=== PATIENT | female | born 1955 | race Caucasian/White ===

== ENCOUNTER 2017-01-14 08:16 | Outpatient (CLI) | payer MEDICARE, MEDICAID ==
[~2017-01-14] VITALS: Ht 152.4 cm; Wt 94.3 kg
[2017-01-14] VITALS (13 sets, daily range): BP systolic 108–142; BP diastolic 56–82
[2017-01-14 08:46] LABS: HEMATOCRIT 40.4 % (36.0-47.0); HEMOGLOBIN 13.5 g/dL (12.0-15.5); RED BLOOD COUNT 4.44 x10^6/uL (3.50-5.40); RED CELL DISTRIBUTION WIDTH 12.9 % (11.5-14.5); WHITE BLOOD COUNT 6.4 x10^3/uL (4.0-11.0)
[2017-01-14 09:01] LABS: CALCIUM 9.6 mg/dL (8.5-10.1); CREATININE 0.8 mg/dL (0.6-1.0); GFR 72.7; POTASSIUM 4.3 mmol/L (3.5-5.1)
[2017-01-14] MEDS ORDERED: ASPIRIN 325 MG TABLET ONE (09:04)
[2017-01-14] MEDS ORDERED: ASPIRIN 325 MG TABLET PO ONE (09:15)
[2017-01-14] MEDS ORDERED: IOHEXOL 300 MG/ML 100ML VIAL. ONE (09:23)
[2017-01-14] MEDS ORDERED: LIDOCAINE 2% 20 ML VIAL. ONE (09:23)
[2017-01-14] MEDS ORDERED: fentaNYL PF VIAL 250 MCG/5 ML VIAL ONE (09:32)
[2017-01-14] MEDS ORDERED: HEPARIN for IV BOLUS 10,000 UNIT/10 ML VIAL. ONE (09:32)
[2017-01-14] MEDS ORDERED: NITROGLYCERIN 200 MCG/2 ML SYRINGE FOR CATH/VASC LAB. ONE (09:32)
[2017-01-14] MEDS ORDERED: VERAPAMIL 5 MG/2 ML VIAL. ONE (09:32)
[2017-01-14] MEDS ORDERED: MIDAZOLAM HCL/PF 5 MG/5 ML VIAL. ONE (09:32)
[2017-01-14] MEDS ORDERED: HEPARIN for IV BOLUS 10,000 UNIT/10 ML VIAL. IART ONE (10:00)
[2017-01-14] MEDS ORDERED: VERAPAMIL 5 MG/2 ML VIAL. IART ONE (10:00)
[2017-01-14] MEDS ORDERED: fentaNYL PF VIAL 250 MCG/5 ML VIAL IV ONE (10:00)
[2017-01-14] MEDS ORDERED: MIDAZOLAM HCL/PF 5 MG/5 ML VIAL. IV ONE (10:00)
[2017-01-14] MEDS ORDERED: IOHEXOL 300 MG/ML 100ML VIAL. IART ONE (10:00)
[2017-01-14] MEDS ORDERED: NITROGLYCERIN 200 MCG/2 ML SYRINGE FOR CATH/VASC LAB. IART ONE (10:00)
[2017-01-14] MEDS ORDERED: LIDOCAINE 2% 20 ML VIAL. IJ ONE (10:00)
--- NOTE | 2017-01-14 10:59 | CARD ---
APPROVED REPORT Procedure(s) performed: [facility], Coronary angiography HISTORY The patient is a 61 year-old female with a history of : diabetes mellitus with treatment, hypertensio n, dyslipidemia. INDICATION The indication(s) include : positive stress test, dyspnea. PROCEDURE NARRATIVE The patient was brought electively to the cardiac catheterization lab. A timeout was performed confi rming the patient's name, date of , procedure, and site of procedure. All necessary personnel w ere wearing the appropriate protective equipment and radiation monitor devices. After explaining the risks and benefits of the procedure and alternatives, informed consent was obtained. (See nursing no sandra for medications administered). The right wrist was sterilely prepped and draped in the usual fas hion. The right wrist was infiltrated with 1 mL of 2% lidocaine for subcutaneous anesthesia. A 6 Fr ench Terumo glide sheath was inserted into the right radial artery without difficulty. Right and lef t coronary angiography was performed using a 5Fr TIG 4.0 catheter and a 6Fr JR4. Left ventricular en d diastolic pressure was obtained with a TIG catheter and pullback was performed. All catheter excha nges and advancements were performed over a guidewire. At case completion the right radial sheath wa s removed and a Terumo radial band was applied with 13 ml of air. The patient tolerated the procedur e well and there were no immediate complications. HEMODYNAMICS: LVEDP 18 mm Hg No gradient on LV to aortic pullback. LEFT VENTRICULOGRAM: Deferred due to known EF of 60%. CORONARY ANGIOGRAPHY: LM is a large caliber vessel with normal angiographic appearance. LAD is a large caliber vessel with normal angiographic appearance. Ramus is a large caliber vessel with normal angiographic apeparance. LCx is a moderate caliber non-dominant vessel with normal angiographic appearance. OM1 is a moderate caliber vessel with normal angiographic appearance. RCA is a large caliber dominant vessel with normal angiographic appearance. RPDA and RPL are moderate caliber vessels with normal angiographic appearance. Conclusion 1. Normal angiographic appearance of the coronary arteries. 2. Mildly elevated left ventricular filling pressures. Recommendations Aggressive Medical Therapy
[2017-01-14] MEDS ORDERED: NITROGLYCERIN SUBLINGUAL 0.4 MG BOTTLE OF 25. SL PRN (11:00)
[2017-01-14] MEDS ORDERED: 0.9 % SODIUM CHLORIDE 10 ML DISP.SYRIN. IV PRN (11:00)
[2017-01-14] MEDS ORDERED: INSU100I17 SQ (11:14)
[2017-01-14] MEDS ORDERED: RANI300C PO (11:14)
[2017-01-14] MEDS ORDERED: METO-269 PO (11:14)
[2017-01-14] MEDS ORDERED: HUM100IN3 SQ (11:14)
[2017-01-14] MEDS ORDERED: RIFA550T PO (11:14)
[2017-01-14] MEDS ORDERED: PREG150C PO (11:14)
[2017-01-14] MEDS ORDERED: TIOT18CA IH (11:14)
[2017-01-14] MEDS ORDERED: SULF500T7 PO (11:14)
[2017-01-14] MEDS ORDERED: MELO-156 PO (11:14)
[2017-01-14] MEDS ORDERED: TRAM50TA PO (11:14)
[2017-01-14] MEDS ORDERED: OMEP40CA5 PO (11:14)
[2017-01-14] MEDS ORDERED: FLUT100D IH (11:14)
[2017-01-14] MEDS ORDERED: ACETAMINOPHEN 325 MG TABLET. PO ONE ×3 (13:11→13:15)
== END 2017-01-14 13:15 | disposition home or self-care (01) ==
LOC: CCL 08:16
PROVIDERS: ATTEND Internal Medicine Cardiovascular Disease
DX: R94.39 Abnormal result of other cardiovascular function study (principal); I10 Essential (primary) hypertension; E11.9 Type 2 diabetes mellitus without complications; M19.90 Unspecified osteoarthritis, unspecified site; D86.9 Sarcoidosis, unspecified; Z90.49 Acquired absence of other specified parts of digestive tract; J44.9 Chronic obstructive pulmonary disease, unspecified; Z88.3 Allergy status to other anti-infective agents; Z88.8 Allergy status to other drugs, medicaments and biological substances
CPT/HCPCS: 36415; 80048; 85027; 85610; 93458; C1892; J2250; J3010; J3490; Q9967

== ENCOUNTER → 2019-10-12 | Outpatient (CLI) | payer MEDICARE, MEDICAID ==
[2019-10-06 10:37] VITALS: BP 137/69
[~2019-10-12] MED LIST: DOXA2TAB2 PO; FLUT100D IH; HUM100IN3 SQ; INSU100I17 SQ; MELO7.5T29 PO; METO-269 PO; OMEP40CA45 PO; PREG150C PO; RANI300C PO; RIFA550T4 PO; SULF500T7 PO; TIOT18CA IH; TRAM50TA PO
--- NOTE | 2019-10-13 08:32 | RAD ---
CHEST PA LATERAL History: Dyspnea, pleural effusion Comparison: 10/05/2019 Findings: Frontal and lateral views of the chest were obtained. Heart size normal. Vasculature is congested. Moderate size right pleural effusion is decreased in the interval. No pneumothorax. There is small left pleural effusion is present. Right mid thoracic level with scar atelectasis is present. L1 compression fracture deformity is present with severe vertebral body height loss. This is similar to 09/22/2019 CT chest without contrast. Surgical clips involving the right upper abdomen. IMPRESSION: Right basilar opacification is decreased upon correlation with 09/22/2019 with pleural effusion and atelectasis. Small left pleural effusion is present and also less than prior exam. On the vasculature congestion is mildly improved. Electronically signed by: Jorge Lynch MD (10/13/2019 8:29 AM) [id number]
== END | disposition home or self-care (01) ==
LOC: RAD 15:53
PROVIDERS: ATTEND Internal Medicine Gastroenterology
DX: J90 Pleural effusion, not elsewhere classified (principal); J98.11 Atelectasis; R09.89 Other specified symptoms and signs involving the circulatory and respiratory systems
CPT/HCPCS: 71046

== ENCOUNTER 2019-10-15 19:04 | Inpatient (IN) | payer MEDICARE, MEDICAID ==
[~2019-10-15] VITALS: Ht 144.8 cm; Wt 90.1 kg
[2019-10-15 19:42] LABS: BASO % 1 % (0-3); EOS # 0.1 x10^3/uL (0.0-0.7); EOS % 1 % (0-3); HEMATOCRIT 38.2 % (36.0-47.0); HEMOGLOBIN 12.2 g/dL (12.0-15.5); LYMPH # 0.7 x10^3/uL (1.0-4.8); LYMPH % 15 % (24-48); MEAN CORPUSCULAR HEMOGLOBIN 28 pg (25-35); MEAN CORPUSCULAR HGB CONC 32 g/dL (31-37); MEAN CORPUSCULAR VOLUME 89 fL (79-100); MONO # 0.4 x10^3/uL (0.0-1.1); MONO % 9 % (0-9); NEUT # 3.7 x10^3/uL (1.8-7.7); NEUT % 75 % (31-73); PLATELET COUNT 118 x10^3/uL (140-400); RED BLOOD COUNT 4.28 x10^6/uL (3.50-5.40); RED CELL DISTRIBUTION WIDTH 14.5 % (11.5-14.5)
[2019-10-15 19:51] LABS: CALCIUM 8.7 mg/dL (8.5-10.1); CREATININE 0.5 mg/dL (0.6-1.0); GFR 123.8; POTASSIUM 4.3 mmol/L (3.5-5.1)
--- NOTE | 2019-10-15 19:52 | PHYS DOC ---
Past Medical History Smoking Status: Never Smoker Adult General Chief Complaint Chief Complaint: ABNORMAL LABS HPI HPI Patient is a 64 year old female past medical history of diabetes, hypertension, liver cirrhosis, CHF presents with the chief complaint of shortness of breath. Prior to arrival patient was seen by here PCP (Dr Correa) who ordered outpatient labs and xray at [facility]. Labs and Xray reviewed by PCP and referred patient to [facility] for admission to [facility]. Patient states she has had shortness of breath for years but worse over the last few days. She denies any associated chest pain. Review of Systems Review of Systems Constitutional: Denies fever or chills [] Eyes: Denies change in visual acuity, redness, or eye pain [] HENT: Denies nasal congestion or sore throat [] Respiratory: positive shortness of breath [] Cardiovascular: No additional information not addressed in HPI [] GI: Denies abdominal pain, nausea, vomiting, bloody stools or diarrhea [] : Denies dysuria or hematuria [] Musculoskeletal: Denies back pain or joint pain [] Integument: Denies rash or skin lesions [] Neurologic: Denies headache, focal weakness or sensory changes [] Endocrine: Denies polyuria or polydipsia [] All other systems were reviewed and found to be within normal limits, except as documented in this note. Allergies Allergies Allergies Coded Allergies Type Severity Reaction Last Updated Verified Tetanus Vaccines and Toxoid Allergy Intermediate 01/14/17 Yes clotrimazole Allergy Intermediate 01/14/17 Yes lisinopril Allergy Intermediate 01/14/17 Yes losartan Allergy Intermediate 01/14/17 Yes Physical Exam Physical Exam Constitutional: Well developed, well nourished, no acute distress, non-toxic appearance. [] HENT: Normocephalic, atraumatic, bilateral external ears normal, oropharynx moist, no oral exudates, nose normal. [] Eyes: PERRLA, EOMI, conjunctiva normal, no discharge. [] Neck: Normal range of motion, no tenderness, supple, no stridor. [] Cardiovascular:Heart rate regular rhythm, no murmur [] Lungs & Thorax: decreased breath sounds on right Abdomen: Bowel sounds normal, soft, no tenderness, no masses, no pulsatile masses. [] Skin: Warm, dry, no erythema, no rash. [] Back: No tenderness, no CVA tenderness. [] Extremities: No tenderness, no cyanosis, no clubbing, ROM intact, no edema. [] Neurologic: Alert and oriented X 3, normal motor function, normal sensory function, no focal deficits noted. [] Psychologic: Affect normal, judgement normal, mood normal. [] Current Patient Data Lab Values Laboratory Tests Test 10/15/19 19:28 White Blood Count 5.0 x10^3/uL (4.0-11.0) Red Blood Count 4.28 x10^6/uL (3.50-5.40) Hemoglobin 12.2 g/dL (12.0-15.5) Hematocrit 38.2 % (36.0-47.0) Mean Corpuscular Volume 89 fL (79-100) Mean Corpuscular Hemoglobin 28 pg (25-35) Mean Corpuscular Hemoglobin Concent 32 g/dL (31-37) Red Cell Distribution Width 14.5 % (11.5-14.5) Platelet Count 118 x10^3/uL (140-400) L Neutrophils (%) (Auto) 75 % (31-73) H Lymphocytes (%) (Auto) 15 % (24-48) L Monocytes (%) (Auto) 9 % (0-9) Eosinophils (%) (Auto) 1 % (0-3) Basophils (%) (Auto) 1 % (0-3) Neutrophils # (Auto) 3.7 x10^3/uL (1.8-7.7) Lymphocytes # (Auto) 0.7 x10^3/uL (1.0-4.8) L Monocytes # (Auto) 0.4 x10^3/uL (0.0-1.1) Eosinophils # (Auto) 0.1 x10^3/uL (0.0-0.7) Basophils # (Auto) 0.0 x10^3/uL (0.0-0.2) Sodium Level 145 mmol/L (136-145) Potassium Level 4.3 mmol/L (3.5-5.1) Chloride Level 103 mmol/L (98-107) Carbon Dioxide Level 41 mmol/L (21-32) H Anion Gap 1 (6-14) L Blood Urea Nitrogen 7 mg/dL (7-20) Creatinine 0.5 mg/dL (0.6-1.0) L Estimated GFR (Cockcroft-Gault) 123.8 BUN/Creatinine Ratio 14 (6-20) Glucose Level 98 mg/dL (70-99) Calcium Level 8.7 mg/dL (8.5-10.1) Total Bilirubin 0.2 mg/dL (0.2-1.0) Aspartate Amino Transferase (AST) 40 U/L (15-37) H Alanine Aminotransferase (ALT) 37 U/L (14-59) Alkaline Phosphatase 173 U/L (46-116) H Ammonia 17 mcmol/L (11-34) Troponin I Quantitative < 0.017 ng/mL (0.000-0.055) RV-Jbh-A-Type Natriuretic Peptide 311 pg/mL (0-124) H Total Protein 7.7 g/dL (6.4-8.2) Albumin 3.2 g/dL (3.4-5.0) L Albumin/Globulin Ratio 0.7 (1.0-1.7) L Laboratory Tests 10/15/19 19:28 Laboratory Tests 10/15/19 19:28 EKG EKG [] Radiology/Procedures Radiology/Procedures [] Impressions: Chest Xray [facility] Pleural Effusion Right Course & Med Decision Making Course & Med Decision Making Pertinent Labs and Imaging studies reviewed. (See chart for details) [] Dragon Disclaimer Dragon Disclaimer This electronic medical record was generated, in whole or in part, using a voice recognition dictation system. Departure Departure Impression: Primary Impression: Dyspnea Additional Impression: Pleural effusion associated with hepatic disorder Disposition: ADMITTED INPATIENT Admitting Physician: ERNESTO (Dr Pisano) Condition: STABLE Referrals: ANGEL CASTANEDA MD (PCP) Problem Qualifiers MARIA LUISA VÁSQUEZ DO Oct 15, 2019 19:52
[2019-10-15 19:58] LABS: ALBUMIN 3.2 g/dL (3.4-5.0); ALBUMIN/GLOBULIN RATIO 0.7 (1.0-1.7); TOTAL BILIRUBIN 0.2 mg/dL (0.2-1.0); TOTAL PROTEIN 7.7 g/dL (6.4-8.2)
[2019-10-15 21:09] LABS: BASE EXCESS ABG 10 mmol/L (-3-3); HCO3 ABG 39 mmol/L (21-28); PO2 ABG 90 mmHg (65-108); SAT O2 ABG 96 % (92-99)
[2019-10-15 22:04] LABS: PCO2 ABG 81 mmHg (35-46)
[2019-10-15 22:07] LABS: BILIRUBIN,URINE NEGATIVE (NEG); COLOR,URINE YELLOW; NITRITE,URINE NEGATIVE (NEG); PROTEIN,URINE NEGATIVE (NEG-TRACE); UROBILINOGEN,URINE 0.2 mg/dL (0.2 mg/dL)
[2019-10-15 22:12] LABS: CLARITY,URINE CLEAR
[2019-10-15 22:14] LABS: BACTERIA,URINE FEW /HPF (0-FEW); RBC,URINE RARE /HPF (0-2); SQUAMOUS EPITHELIAL CELL,UR FEW /LPF
[2019-10-16] VITALS (7 sets, daily range): BP systolic 136–204; BP diastolic 64–91
--- NOTE | 2019-10-16 11:11 | PDOC1 ---
History and Physical Date of Admission: Date of Admission DATE: 10/16/19 TIME: 11:08 Chief Complaint: Problems: (1) Acute and chronic respiratory failure with hypoxia (2) Acute and chronic respiratory failure with hypercapnia (3) Hepatic encephalopathy (4) Pleural effusion associated with hepatic disorder (5) Dyspnea (6) Pleural effusion on right Chief Complain: Shortness of breath History of Present Illness: HPI: This is an elderly female who went to her primary care doctor yesterday complaining of shortness of breath Dr. Lino ordered a chest x-ray and some labs The chest x-ray showed a pleural effusion She was told to come to our facility for admission She's now been examined on the telemetry floor where she is here with her Patient rates her symptoms at 9 out of 10 She has associated weakness This is been occurring for several days Increased her home meds did not help Moving makes it worse sitting still makes it better Described as very irritating Patient is now made were going to be consulting pulmonary medicine Past Medical/Surgical History: PMH/PSH: diabetes, hypertension, liver cirrhosis, CHF Allergies: Allergies: Coded Allergies: Tetanus Vaccines and Toxoid (Verified Allergy, Intermediate, 01/14/17) clotrimazole (Verified Allergy, Intermediate, 01/14/17) lisinopril (Verified Allergy, Intermediate, 01/14/17) losartan (Verified Allergy, Intermediate, 01/14/17) Family History: Family History: Hypertension Social History: Social Hisoty: She does not drink smoke or take drugs she is and retired Current Medications: Current Medications Active Scripts Active Reported Doxazosin Mesylate 2 Mg Tablet 1 Tab PO DAILY Meloxicam 7.5 Mg Tablet 1 Tab PO DAILY Omeprazole 40 Mg Capsule.dr 1 Cap PO DAILY Spiriva (Tiotropium Dixon) 18 Mcg Cap.w.dev 1 Cap IH DAILY Flovent 100MCG Diskus (Fluticasone Propionate) 100 Mcg Disk.w.dev 1 Puff IH BID Novolog Flexpen (Insulin Aspart) 100 Unit/1 Ml Insuln.pen 1 Unit SQ sliding scale for bg >200 Humulin 70/30 Kwikpen (Hum Insulin Nph/Reg Insulin Hm) 100 Unit/1 Ml Insuln.pen 100 Unit SQ 35 units in the am, 33 units at hs Toprol Xl (Metoprolol Succinate) 50 Mg Tab.er.24h 1 Tab PO DAILY Lyrica (Pregabalin) 150 Mg Capsule 1 Cap PO BID Sulfasalazine 500 Mg Tablet 1,000 Mg PO BID Xifaxan (Rifaximin) 550 Mg Tablet 1 Tab PO BID ROS: Review of Systems Review of System REVIEW OF SYSTEMS: GENERAL: complains of weakness SKIN: No bruising, hair changes or rashes. EYES: No blurred, double or loss of vision. NOSE AND THROAT: No history of nosebleeds, hoarseness or sore throat. HEART: No history of palpitations, chest pain or shortness of breath on exertion. LUNGS: Complains of shortness of breath GASTROINTESTINAL: Denies changes in appetite, nausea, vomiting, diarrhea or constipation. GENITOURINARY: No history of frequency, urgency, hesitancy or nocturia. NEUROLOGIC: Denies history of numbness, tingling, or tremor. PSYCHIATRIC: No history of panic, anxiety or depression. ENDOCRINE: No history of heat or cold intolerance, polyuria or polydipsia. EXTREMITIES: Denies joint pain, pain on walking or stiffness. Physical Exam: Vital Signs: Vital Signs Date Time Temp Pulse Resp B/P (MAP) Pulse Ox O2 Delivery O2 Flow Rate FiO2 10/16/19 07:00 98.3 79 22 153/72 (99) 97 Nasal Cannula 2.0 98.3 Physcial Exam: GEN: No apparent distress. Alert and oriented HEENT: Normal cephalic, atraumatic, external auditory canals are patent EYES: Extraocular muscles are intact, pupil are equally round and reactive to light and accommodation MUSCULOSKELETAL: Well developed , well nourished, good range of motion ENDOCRINE: No thyromegaly was palpated LYMPHATICS: No cervical chain or axillary nodes were noted HEMATOPOIETIC: No bruising NECK: Supple, no JVD, no thyromegaly was noted LUNGS: Decreased breath sounds on the right HEART: RRR, S!, S2 present. Peripheral pulses intact, no obvious murmurs noted ABDOMEN: Soft, nontender. Positive bowel sounds, no organomegaly, normal bowel sounds EXTREMITIES: Without clubbing, cyanosis, or edema. Pedal pulses intact. Negative Homans sign NEUROLOGIC: Normal speech and tone. A&O x 3, moves all extremities, no obvious focal deficits PSYCHIATRIC: Normal affect, normal mood. Stable SKIN: No ulcerations or rashes, good skin turgor, no jaundice VASCULAR: Good capillary refill, neurovascular bundle appears to be intact Labs: Labs: Laboratory Tests Test 10/15/19 19:28 10/15/19 21:05 10/15/19 22:00 10/16/19 08:13 White Blood Count 5.0 x10^3/uL (4.0-11.0) Red Blood Count 4.28 x10^6/uL (3.50-5.40) Hemoglobin 12.2 g/dL (12.0-15.5) Hematocrit 38.2 % (36.0-47.0) Mean Corpuscular Volume 89 fL (79-100) Mean Corpuscular Hemoglobin 28 pg (25-35) Mean Corpuscular Hemoglobin Concent 32 g/dL (31-37) Red Cell Distribution Width 14.5 % (11.5-14.5) Platelet Count 118 x10^3/uL (140-400) Neutrophils (%) (Auto) 75 % (31-73) Lymphocytes (%) (Auto) 15 % (24-48) Monocytes (%) (Auto) 9 % (0-9) Eosinophils (%) (Auto) 1 % (0-3) Basophils (%) (Auto) 1 % (0-3) Neutrophils # (Auto) 3.7 x10^3/uL (1.8-7.7) Lymphocytes # (Auto) 0.7 x10^3/uL (1.0-4.8) Monocytes # (Auto) 0.4 x10^3/uL (0.0-1.1) Eosinophils # (Auto) 0.1 x10^3/uL (0.0-0.7) Basophils # (Auto) 0.0 x10^3/uL (0.0-0.2) Sodium Level 145 mmol/L (136-145) Potassium Level 4.3 mmol/L (3.5-5.1) Chloride Level 103 mmol/L (98-107) Carbon Dioxide Level 41 mmol/L (21-32) Anion Gap 1 (6-14) Blood Urea Nitrogen 7 mg/dL (7-20) Creatinine 0.5 mg/dL (0.6-1.0) Estimated GFR (Cockcroft-Gault) 123.8 BUN/Creatinine Ratio 14 (6-20) Glucose Level 98 mg/dL (70-99) Calcium Level 8.7 mg/dL (8.5-10.1) Total Bilirubin 0.2 mg/dL (0.2-1.0) Aspartate Amino Transf (AST/SGOT) 40 U/L (15-37) Alanine Aminotransferase (ALT/SGPT) 37 U/L (14-59) Alkaline Phosphatase 173 U/L (46-116) Ammonia 17 mcmol/L (11-34) Troponin I Quantitative < 0.017 ng/mL (0.000-0.055) CV-Nab-X-Type Natriuretic Peptide 311 pg/mL (0-124) Total Protein 7.7 g/dL (6.4-8.2) Albumin 3.2 g/dL (3.4-5.0) Albumin/Globulin Ratio 0.7 (1.0-1.7) O2 Saturation 96 % (92-99) Arterial Blood pH 7.31 (7.35-7.45) Arterial Blood pCO2 at Patient Temp 81 mmHg (35-46) Arterial Blood pO2 at Patient Temp 90 mmHg (65-108) Arterial Blood HCO3 39 mmol/L (21-28) Arterial Blood Base Excess 10 mmol/L (-3-3) Urine Collection Type Void Urine Color Yellow Urine Clarity Clear Urine pH 7.0 Urine Specific Kimberly 1.020 Urine Protein Negative mg/dL (NEG-TRACE) Urine Glucose (UA) Negative mg/dL (NEG) Urine Ketones (Stick) Negative mg/dL (NEG) Urine Blood Negative (NEG) Urine Nitrite Negative (NEG) Urine Bilirubin Negative (NEG) Urine Urobilinogen Dipstick 0.2 mg/dL (0.2 mg/dL) Urine Leukocyte Esterase Small (NEG) Urine RBC Rare /HPF (0-2) Urine WBC 1-4 /HPF (0-4) Urine Squamous Epithelial Cells Few /LPF Urine Bacteria Few /HPF (0-FEW) Urine Mucus Slight /LPF Glucose (Fingerstick) 111 mg/dL (70-99) Laboratory Tests Test 10/15/19 19:28 10/15/19 21:05 10/15/19 22:00 10/16/19 08:13 White Blood Count 5.0 x10^3/uL (4.0-11.0) Red Blood Count 4.28 x10^6/uL (3.50-5.40) Hemoglobin 12.2 g/dL (12.0-15.5) Hematocrit 38.2 % (36.0-47.0) Mean Corpuscular Volume 89 fL (79-100) Mean Corpuscular Hemoglobin 28 pg (25-35) Mean Corpuscular Hemoglobin Concent 32 g/dL (31-37) Red Cell Distribution Width 14.5 % (11.5-14.5) Platelet Count 118 x10^3/uL (140-400) Neutrophils (%) (Auto) 75 % (31-73) Lymphocytes (%) (Auto) 15 % (24-48) Monocytes (%) (Auto) 9 % (0-9) Eosinophils (%) (Auto) 1 % (0-3) Basophils (%) (Auto) 1 % (0-3) Neutrophils # (Auto) 3.7 x10^3/uL (1.8-7.7) Lymphocytes # (Auto) 0.7 x10^3/uL (1.0-4.8) Monocytes # (Auto) 0.4 x10^3/uL (0.0-1.1) Eosinophils # (Auto) 0.1 x10^3/uL (0.0-0.7) Basophils # (Auto) 0.0 x10^3/uL (0.0-0.2) Sodium Level 145 mmol/L (136-145) Potassium Level 4.3 mmol/L (3.5-5.1) Chloride Level 103 mmol/L (98-107) Carbon Dioxide Level 41 mmol/L (21-32) Anion Gap 1 (6-14) Blood Urea Nitrogen 7 mg/dL (7-20) Creatinine 0.5 mg/dL (0.6-1.0) Estimated GFR (Cockcroft-Gault) 123.8 BUN/Creatinine Ratio 14 (6-20) Glucose Level 98 mg/dL (70-99) Calcium Level 8.7 mg/dL (8.5-10.1) Total Bilirubin 0.2 mg/dL (0.2-1.0) Aspartate Amino Transf (AST/SGOT) 40 U/L (15-37) Alanine Aminotransferase (ALT/SGPT) 37 U/L (14-59) Alkaline Phosphatase 173 U/L (46-116) Ammonia 17 mcmol/L (11-34) Troponin I Quantitative < 0.017 ng/mL (0.000-0.055) CU-Jir-C-Type Natriuretic Peptide 311 pg/mL (0-124) Total Protein 7.7 g/dL (6.4-8.2) Albumin 3.2 g/dL (3.4-5.0) Albumin/Globulin Ratio 0.7 (1.0-1.7) O2 Saturation 96 % (92-99) Arterial Blood pH 7.31 (7.35-7.45) Arterial Blood pCO2 at Patient Temp 81 mmHg (35-46) Arterial Blood pO2 at Patient Temp 90 mmHg (65-108) Arterial Blood HCO3 39 mmol/L (21-28) Arterial Blood Base Excess 10 mmol/L (-3-3) Urine Collection Type Void Urine Color Yellow Urine Clarity Clear Urine pH 7.0 Urine Specific Kimberly 1.020 Urine Protein Negative mg/dL (NEG-TRACE) Urine Glucose (UA) Negative mg/dL (NEG) Urine Ketones (Stick) Negative mg/dL (NEG) Urine Blood Negative (NEG) Urine Nitrite Negative (NEG) Urine Bilirubin Negative (NEG) Urine Urobilinogen Dipstick 0.2 mg/dL (0.2 mg/dL) Urine Leukocyte Esterase Small (NEG) Urine RBC Rare /HPF (0-2) Urine WBC 1-4 /HPF (0-4) Urine Squamous Epithelial Cells Few /LPF Urine Bacteria Few /HPF (0-FEW) Urine Mucus Slight /LPF Glucose (Fingerstick) 111 mg/dL (70-99) Images: Images Chest x-ray results are pending as they were done at another facility but apparently did show a pleural effusion Assessment/Plan Assessment/Plan Pleural effusion Acute on chronic systolic and diastolic heart failure Plan Consult cardiology Consult pulmonary IV Lasix if consultants agree She might need to interventional radiology to do a thoracentesis but will await pulmonary input Home meds DVT prophylaxis Full code Trend labs PT OT if possible She may need residential after this hospitalization ELODIA GABRIEL III DO Oct 16, 2019 11:11
--- NOTE | 2019-10-16 11:47 | NUR ---
SS following for discharge planning. SS reviewed pt chart. Pt is from home with spouse and is currently requiring oxygen. SS will continue to follow for discharge planning.
--- NOTE | 2019-10-16 12:54 | PDOC2 ---
SONI ZUNIGA PLASTIC DESIGN APPLIER 10/16/19 1254: CARDIAC CONSULT DATE OF CONSULT Date of Consult DATE: 10/16/19 TIME: 12:39 REASON FOR CONSULT Reason for Consult: CHF REFERRING PHYSICIAN Referring Physician: Liban SOURCE Source: Chart review, Patient HISTORY OF PRESENT ILLNESS HISTORY OF PRESENT ILLNESS This is a 64 yo female admitted for complains of SOA. She was at her PCP's office and CXR done and noted with pleural effusion. She was then told to come to ED. Reports that she has been having more SOA recently. She does have LE edema but could not tell me if this is worse or the same. She is complaint with her medications and CPAP device which was just adjusted a week ago. She does not take her BP and upon admission her BP was significantly high. She is not in any pain. No chest pain or palpitations. She drinks about 2-3L per day. No frequnet dizziness, falls or any passsing out episode. PAST MEDICAL HISTORY Cardiovascular: CHF, HTN Pulmonary: Other (sarcoidosis; pleural effusion; CAROLE with CPAP) Hepatobiliary: Cirrhosis Musculoskeletal: Osteoarthritis Rheumatologic: Rheumatoid arthritis Renal/: Urinary Incontinence Endocrine: Diabetes PAST SURGICAL HISTORY Past Surgical History: Tonsillectomy, Other (LHC; achiles tendon repair; thoracentesis) FAMILY HISTORY Family History noncontributory SOCIAL HISTORY Smoke: No ALCOHOL: none Drugs: None Lives: with Family ALLERGIES ALLERGIES: Coded Allergies: Tetanus Vaccines and Toxoid (Verified Allergy, Intermediate, 01/14/17) clotrimazole (Verified Allergy, Intermediate, 01/14/17) lisinopril (Verified Allergy, Intermediate, 01/14/17) losartan (Verified Allergy, Intermediate, 01/14/17) ROS Review of System 14 point ROS evaluated with pertinent positives noted per HPI PHYSICAL EXAM General: Alert, Oriented X3, Cooperative, No acute distress HEENT: Atraumatic, Mucous membr. moist/pink, Other ([place] ) Lungs: Other (dminsihed, basliar crackles) Heart: Regular rate (SR), Other (distant heart sounds) Extremities: No cyanosis, Other (2+ bilateral LE pitting edema) Skin: No breakdown Neuro: Normal speech, Sensation intact Psych/Mental Status: Mental status NL, Mood NL MUSCULOSKELETAL: Osteoarthritic changes both hands VITALS/I&O VITALS/I&O: Vital Signs Date Time Temp Pulse Resp B/P (MAP) Pulse Ox O2 Delivery O2 Flow Rate FiO2 10/16/19 07:00 98.3 79 22 153/72 (99) 97 Nasal Cannula 2.0 98.3 I & O 10/15/19 10/15/19 10/16/19 15:00 23:00 07:00 Output Total 150 ml Balance -150 ml LABS Lab: Laboratory Tests Test 10/15/19 19:28 10/15/19 21:05 10/15/19 22:00 10/16/19 08:13 White Blood Count 5.0 x10^3/uL (4.0-11.0) Red Blood Count 4.28 x10^6/uL (3.50-5.40) Hemoglobin 12.2 g/dL (12.0-15.5) Hematocrit 38.2 % (36.0-47.0) Mean Corpuscular Volume 89 fL (79-100) Mean Corpuscular Hemoglobin 28 pg (25-35) Mean Corpuscular Hemoglobin Concent 32 g/dL (31-37) Red Cell Distribution Width 14.5 % (11.5-14.5) Platelet Count 118 x10^3/uL (140-400) L Neutrophils (%) (Auto) 75 % (31-73) H Lymphocytes (%) (Auto) 15 % (24-48) L Monocytes (%) (Auto) 9 % (0-9) Eosinophils (%) (Auto) 1 % (0-3) Basophils (%) (Auto) 1 % (0-3) Neutrophils # (Auto) 3.7 x10^3/uL (1.8-7.7) Lymphocytes # (Auto) 0.7 x10^3/uL (1.0-4.8) L Monocytes # (Auto) 0.4 x10^3/uL (0.0-1.1) Eosinophils # (Auto) 0.1 x10^3/uL (0.0-0.7) Basophils # (Auto) 0.0 x10^3/uL (0.0-0.2) Sodium Level 145 mmol/L (136-145) Potassium Level 4.3 mmol/L (3.5-5.1) Chloride Level 103 mmol/L (98-107) Carbon Dioxide Level 41 mmol/L (21-32) H Anion Gap 1 (6-14) L Blood Urea Nitrogen 7 mg/dL (7-20) Creatinine 0.5 mg/dL (0.6-1.0) L Estimated GFR (Cockcroft-Gault) 123.8 BUN/Creatinine Ratio 14 (6-20) Glucose Level 98 mg/dL (70-99) Calcium Level 8.7 mg/dL (8.5-10.1) Total Bilirubin 0.2 mg/dL (0.2-1.0) Aspartate Amino Transferase (AST) 40 U/L (15-37) H Alanine Aminotransferase (ALT) 37 U/L (14-59) Alkaline Phosphatase 173 U/L (46-116) H Ammonia 17 mcmol/L (11-34) Troponin I Quantitative < 0.017 ng/mL (0.000-0.055) RJ-Sbk-Q-Type Natriuretic Peptide 311 pg/mL (0-124) H Total Protein 7.7 g/dL (6.4-8.2) Albumin 3.2 g/dL (3.4-5.0) L Albumin/Globulin Ratio 0.7 (1.0-1.7) L O2 Saturation 96 % (92-99) Arterial Blood pH 7.31 (7.35-7.45) L Arterial Blood pCO2 at Patient Temp 81 mmHg (35-46) *H Arterial Blood pO2 at Patient Temp 90 mmHg (65-108) Arterial Blood HCO3 39 mmol/L (21-28) H Arterial Blood Base Excess 10 mmol/L (-3-3) H Urine Collection Type Void Urine Color Yellow Urine Clarity Clear Urine pH 7.0 Urine Specific [place] 1.020 Urine Protein Negative mg/dL (NEG-TRACE) Urine Glucose (UA) Negative mg/dL (NEG) Urine Ketones (Stick) Negative mg/dL (NEG) Urine Blood Negative (NEG) Urine Nitrite Negative (NEG) Urine Bilirubin Negative (NEG) Urine Urobilinogen Dipstick 0.2 mg/dL (0.2 mg/dL) Urine Leukocyte Esterase Small (NEG) Urine RBC Rare /HPF (0-2) Urine WBC 1-4 /HPF (0-4) Urine Squamous Epithelial Cells Few /LPF Urine Bacteria Few /HPF (0-FEW) Urine Mucus Slight /LPF Glucose (Fingerstick) 111 mg/dL (70-99) H Test 10/16/19 12:08 Glucose (Fingerstick) 281 mg/dL (70-99) H Laboratory Tests 10/15/19 19:28 Laboratory Tests 10/15/19 19:28 ECHOCARDIOGRAM ECHOCARDIOGRAM <Conclusion> The left ventricular systolic function is grossly normal and the ejection fraction is within normal range. The Ejection Fraction is 60%. Unable to accurately determine wall motion due to severely limited images. Probable mild mitral stenosis. DATE: 09/22/19 1707 HEART CATH HEART CATH HEMODYNAMICS: LVEDP 18 mm Hg No gradient on LV to aortic pullback. LEFT VENTRICULOGRAM: Deferred due to known EF of 60%. CORONARY ANGIOGRAPHY: LM is a large caliber vessel with normal angiographic appearance. LAD is a large caliber vessel with normal angiographic appearance. Ramus is a large caliber vessel with normal angiographic apeparance. LCx is a moderate caliber non-dominant vessel with normal angiographic appearance. OM1 is a moderate caliber vessel with normal angiographic appearance. RCA is a large caliber dominant vessel with normal angiographic appearance. RPDA and RPL are moderate caliber vessels with normal angiographic appearance. Conclusion 1. Normal angiographic appearance of the coronary arteries. 2. Mildly elevated left ventricular filling pressures. Recommendations Aggressive Medical Therapy DATE: 01/14/17 1059 ASSESSMENT/PLAN ASSESSMENT/PLAN 1. Acute on chronic respiratory failure with underlying sarcoidosis, cirrhosis, CAROLE and CHF 2. Acute on chronic diastolic CHF: multifactorial with periods of high BP contributing 3. HTN urgency: improved 4. DM2 5. Hx of RA Recommendations 1. Lasix therapy. 2. Pulmonary consult 3. Bipap at Hs. O2 to titrate 4. Discussed HBPM. Restart DARIEN Keith MD 10/16/19 1641: CARDIAC CONSULT ASSESSMENT/PLAN ASSESSMENT/PLAN Pt. seen and examined. Agree with above [employer]ESS OPERATOR note. attempted to call PCP but unable to reach her. Her CXR is unchanged from last week. Continue diuresis as tolerated. Supportive care. May need repeat thoracentesis, defer to Dr. Pink. Thanks SONI ZUNIGA APRN Oct 16, 2019 12:54 DARIEN BAILEY MD Oct 16, 2019 16:41
[2019-10-16] MEDS: INSULIN NPH/REG INSULIN 70/30 300 UNITS/3 ML INSULN.PEN. SQ SCH (12:57)
[2019-10-16] MEDS ORDERED: FUROSEMIDE 40 MG/4 ML VIAL. IVP ONE (13:30)
[2019-10-16 13:42] LABS: CALCIUM 8.6 mg/dL (8.5-10.1); CREATININE 0.7 mg/dL (0.6-1.0); POTASSIUM 4.4 mmol/L (3.5-5.1)
[2019-10-16] MEDS: MELOXICAM 7.5 MG TABLET PO SCH (13:54)
[2019-10-16] MEDS: METOPROLOL SUCC 24HR ER 50 MG TAB.ER.24H. PO SCH (13:55)
[2019-10-16] MEDS: PREGABALIN 75 MG CAPSULE PO SCH ×2 (13:56→21:50)
[2019-10-16] MEDS: PANTOPRAZOLE 40 MG TABLET.DR. PO SCH (13:56)
[2019-10-16] MEDS: sulfaSALAzine 500 MG TABLET PO SCH ×2 (14:14→21:53)
[2019-10-16] MEDS: rifAXIMin 550 MG TABLET PO SCH ×2 (14:15→21:51)
[2019-10-16] MEDS: IPRATRPIUM/ALBUTEROL 0.5/2.5MG 3 ML NEBU. NEB SCH ×2 (15:01→20:22)
--- NOTE | 2019-10-16 15:08 | PDOC ---
PULMONARY PROGRESS NOTES Vitals Vital Signs Date Time Temp Pulse Resp B/P (MAP) Pulse Ox O2 Delivery O2 Flow Rate FiO2 10/16/19 13:55 81 141/70 10/16/19 11:00 98.1 20 96 Nasal Cannula 2.0 98.1 General: Alert Lungs: Clear, Other Cardiovascular: S1, S2 Abdomen: Soft, Non-tender Extremities: No Edema Labs Laboratory Tests Test 10/15/19 19:28 10/15/19 21:05 10/15/19 22:00 10/16/19 08:13 White Blood Count 5.0 x10^3/uL (4.0-11.0) Red Blood Count 4.28 x10^6/uL (3.50-5.40) Hemoglobin 12.2 g/dL (12.0-15.5) Hematocrit 38.2 % (36.0-47.0) Mean Corpuscular Volume 89 fL (79-100) Mean Corpuscular Hemoglobin 28 pg (25-35) Mean Corpuscular Hemoglobin Concent 32 g/dL (31-37) Red Cell Distribution Width 14.5 % (11.5-14.5) Platelet Count 118 x10^3/uL (140-400) Neutrophils (%) (Auto) 75 % (31-73) Lymphocytes (%) (Auto) 15 % (24-48) Monocytes (%) (Auto) 9 % (0-9) Eosinophils (%) (Auto) 1 % (0-3) Basophils (%) (Auto) 1 % (0-3) Neutrophils # (Auto) 3.7 x10^3/uL (1.8-7.7) Lymphocytes # (Auto) 0.7 x10^3/uL (1.0-4.8) Monocytes # (Auto) 0.4 x10^3/uL (0.0-1.1) Eosinophils # (Auto) 0.1 x10^3/uL (0.0-0.7) Basophils # (Auto) 0.0 x10^3/uL (0.0-0.2) Sodium Level 145 mmol/L (136-145) Potassium Level 4.3 mmol/L (3.5-5.1) Chloride Level 103 mmol/L (98-107) Carbon Dioxide Level 41 mmol/L (21-32) Anion Gap 1 (6-14) Blood Urea Nitrogen 7 mg/dL (7-20) Creatinine 0.5 mg/dL (0.6-1.0) Estimated GFR (Cockcroft-Gault) 123.8 BUN/Creatinine Ratio 14 (6-20) Glucose Level 98 mg/dL (70-99) Calcium Level 8.7 mg/dL (8.5-10.1) Total Bilirubin 0.2 mg/dL (0.2-1.0) Aspartate Amino Transf (AST/SGOT) 40 U/L (15-37) Alanine Aminotransferase (ALT/SGPT) 37 U/L (14-59) Alkaline Phosphatase 173 U/L (46-116) Ammonia 17 mcmol/L (11-34) Troponin I Quantitative < 0.017 ng/mL (0.000-0.055) PD-Rdb-U-Type Natriuretic Peptide 311 pg/mL (0-124) Total Protein 7.7 g/dL (6.4-8.2) Albumin 3.2 g/dL (3.4-5.0) Albumin/Globulin Ratio 0.7 (1.0-1.7) O2 Saturation 96 % (92-99) Arterial Blood pH 7.31 (7.35-7.45) Arterial Blood pCO2 at Patient Temp 81 mmHg (35-46) Arterial Blood pO2 at Patient Temp 90 mmHg (65-108) Arterial Blood HCO3 39 mmol/L (21-28) Arterial Blood Base Excess 10 mmol/L (-3-3) Urine Collection Type Void Urine Color Yellow Urine Clarity Clear Urine pH 7.0 Urine Specific [place] 1.020 Urine Protein Negative mg/dL (NEG-TRACE) Urine Glucose (UA) Negative mg/dL (NEG) Urine Ketones (Stick) Negative mg/dL (NEG) Urine Blood Negative (NEG) Urine Nitrite Negative (NEG) Urine Bilirubin Negative (NEG) Urine Urobilinogen Dipstick 0.2 mg/dL (0.2 mg/dL) Urine Leukocyte Esterase Small (NEG) Urine RBC Rare /HPF (0-2) Urine WBC 1-4 /HPF (0-4) Urine Squamous Epithelial Cells Few /LPF Urine Bacteria Few /HPF (0-FEW) Urine Mucus Slight /LPF Glucose (Fingerstick) 111 mg/dL (70-99) Test 10/16/19 12:08 10/16/19 13:10 Glucose (Fingerstick) 281 mg/dL (70-99) Sodium Level 140 mmol/L (136-145) Potassium Level 4.4 mmol/L (3.5-5.1) Chloride Level 101 mmol/L (98-107) Carbon Dioxide Level 41 mmol/L (21-32) Anion Gap -2 (6-14) Blood Urea Nitrogen 9 mg/dL (7-20) Creatinine 0.7 mg/dL (0.6-1.0) Estimated GFR (Cockcroft-Gault) 84.0 Glucose Level 317 mg/dL (70-99) Calcium Level 8.6 mg/dL (8.5-10.1) Magnesium Level 1.8 mg/dL (1.8-2.4) Laboratory Tests Test 10/15/19 19:28 10/15/19 21:05 10/15/19 22:00 10/16/19 08:13 White Blood Count 5.0 x10^3/uL (4.0-11.0) Red Blood Count 4.28 x10^6/uL (3.50-5.40) Hemoglobin 12.2 g/dL (12.0-15.5) Hematocrit 38.2 % (36.0-47.0) Mean Corpuscular Volume 89 fL (79-100) Mean Corpuscular Hemoglobin 28 pg (25-35) Mean Corpuscular Hemoglobin Concent 32 g/dL (31-37) Red Cell Distribution Width 14.5 % (11.5-14.5) Platelet Count 118 x10^3/uL (140-400) Neutrophils (%) (Auto) 75 % (31-73) Lymphocytes (%) (Auto) 15 % (24-48) Monocytes (%) (Auto) 9 % (0-9) Eosinophils (%) (Auto) 1 % (0-3) Basophils (%) (Auto) 1 % (0-3) Neutrophils # (Auto) 3.7 x10^3/uL (1.8-7.7) Lymphocytes # (Auto) 0.7 x10^3/uL (1.0-4.8) Monocytes # (Auto) 0.4 x10^3/uL (0.0-1.1) Eosinophils # (Auto) 0.1 x10^3/uL (0.0-0.7) Basophils # (Auto) 0.0 x10^3/uL (0.0-0.2) Sodium Level 145 mmol/L (136-145) Potassium Level 4.3 mmol/L (3.5-5.1) Chloride Level 103 mmol/L (98-107) Carbon Dioxide Level 41 mmol/L (21-32) Anion Gap 1 (6-14) Blood Urea Nitrogen 7 mg/dL (7-20) Creatinine 0.5 mg/dL (0.6-1.0) Estimated GFR (Cockcroft-Gault) 123.8 BUN/Creatinine Ratio 14 (6-20) Glucose Level 98 mg/dL (70-99) Calcium Level 8.7 mg/dL (8.5-10.1) Total Bilirubin 0.2 mg/dL (0.2-1.0) Aspartate Amino Transf (AST/SGOT) 40 U/L (15-37) Alanine Aminotransferase (ALT/SGPT) 37 U/L (14-59) Alkaline Phosphatase 173 U/L (46-116) Ammonia 17 mcmol/L (11-34) Troponin I Quantitative < 0.017 ng/mL (0.000-0.055) OV-Fqg-H-Type Natriuretic Peptide 311 pg/mL (0-124) Total Protein 7.7 g/dL (6.4-8.2) Albumin 3.2 g/dL (3.4-5.0) Albumin/Globulin Ratio 0.7 (1.0-1.7) O2 Saturation 96 % (92-99) Arterial Blood pH 7.31 (7.35-7.45) Arterial Blood pCO2 at Patient Temp 81 mmHg (35-46) Arterial Blood pO2 at Patient Temp 90 mmHg (65-108) Arterial Blood HCO3 39 mmol/L (21-28) Arterial Blood Base Excess 10 mmol/L (-3-3) Urine Collection Type Void Urine Color Yellow Urine Clarity Clear Urine pH 7.0 Urine Specific [place] 1.020 Urine Protein Negative mg/dL (NEG-TRACE) Urine Glucose (UA) Negative mg/dL (NEG) Urine Ketones (Stick) Negative mg/dL (NEG) Urine Blood Negative (NEG) Urine Nitrite Negative (NEG) Urine Bilirubin Negative (NEG) Urine Urobilinogen Dipstick 0.2 mg/dL (0.2 mg/dL) Urine Leukocyte Esterase Small (NEG) Urine RBC Rare /HPF (0-2) Urine WBC 1-4 /HPF (0-4) Urine Squamous Epithelial Cells Few /LPF Urine Bacteria Few /HPF (0-FEW) Urine Mucus Slight /LPF Glucose (Fingerstick) 111 mg/dL (70-99) Test 10/16/19 12:08 10/16/19 13:10 Glucose (Fingerstick) 281 mg/dL (70-99) Sodium Level 140 mmol/L (136-145) Potassium Level 4.4 mmol/L (3.5-5.1) Chloride Level 101 mmol/L (98-107) Carbon Dioxide Level 41 mmol/L (21-32) Anion Gap -2 (6-14) Blood Urea Nitrogen 9 mg/dL (7-20) Creatinine 0.7 mg/dL (0.6-1.0) Estimated GFR (Cockcroft-Gault) 84.0 Glucose Level 317 mg/dL (70-99) Calcium Level 8.6 mg/dL (8.5-10.1) Magnesium Level 1.8 mg/dL (1.8-2.4) Medications Active Scripts Medications Dose Route/Sig Max Daily Dose Days Date Category Dose Instructions Doxazosin Mesylate 2 Mg Tablet 1 Tab PO QHS 09/22/19 Reported Meloxicam 7.5 Mg Tablet 1 Tab PO DAILY 01/14/17 Reported Omeprazole 40 Mg Capsule.dr 1 Cap PO DAILY 01/14/17 Reported Spiriva (Tiotropium [place]) 18 Mcg Cap.w.dev 1 Cap IH DAILY 01/14/17 Reported Flovent 100MCG Diskus (Fluticasone Propionate) 100 Mcg Disk.w.dev 1 Puff IH BID 01/14/17 Reported Novolog Flexpen (Insulin Aspart) 100 Unit/1 Ml Insuln.pen 1 Unit SQ 01/14/17 Reported sliding scale for bg >200 Humulin 70/30 Kwikpen (Hum Insulin Nph/Reg Insulin Hm) 100 Unit/1 Ml Insuln.pen 100 Unit SQ 01/14/17 Reported 35 units in the am, 33 units at hs Toprol Xl (Metoprolol Succinate) 50 Mg Tab.er.24h 1 Tab PO DAILY 01/14/17 Reported Lyrica (Pregabalin) 150 Mg Capsule 1 Cap PO BID 01/14/17 Reported Sulfasalazine 500 Mg Tablet 1,000 Mg PO BID 01/14/17 Reported Xifaxan (Rifaximin) 550 Mg Tablet 1 Tab PO BID 01/14/17 Reported Impression . FULL NOTE DICTATED A/C HYPERCAPNEA SEE ORDERS THANKS MARIA INES DUMONT MD Oct 16, 2019 15:08
--- NOTE | 2019-10-16 16:52 | RAD ---
Chest, PA and Lateral: Technique: PA and lateral views of the chest were obtained. History: Pleural effusions. Comparison: 06/21/2020. Findings: Low lung volumes and technique accentuates heart size and pulmonary vascularity. Mild cardiomegaly. Moderate prominent bilateral interstitial lung markings likely congestive changes with small bilateral pleural effusions right greater than left. Severe compression changes L1 vertebral body similar to prior exam. Air-fluid level identified in the right lung base probably from recent thoracentesis. IMPRESSION: 1. Moderate congestive changes slightly increased since prior exam. 2. Bilateral pleural effusions identified, right greater than left. Air-fluid level identified in the right lung base probably from recent thoracentesis. Consider CT chest for better evaluation. Electronically signed by: Eulalio Cornell MD (10/16/2019 4:49 PM) [facility] [place]
[2019-10-16] MEDS ORDERED: INSULIN NPH/REG INSULIN 70/30 300 UNITS/3 ML INSULN.PEN. SQ SCH (18:00)
[2019-10-16] MEDS: BUDESONIDE 0.5 MG/2 ML NEBU. NEB SCH (20:22)
[2019-10-16] MEDS: DOXAZOSIN MESYLATE 1 MG TABLET. PO SCH (21:52)
[2019-10-17 03:40] VITALS: BP 104/54
--- NOTE | 2019-10-17 03:56 | CONS ---
DATE OF CONSULTATION: 10/16/2019 ATTENDING PHYSICIAN: Dr. Louie. REASON FOR CONSULTATION: The patient is seen in pulmonary consultation at the request of Dr. Louie for acute on chronic hypercapnic respiratory failure. HISTORY OF PRESENT ILLNESS: The patient is a 64-year-old with chronic respiratory failure, recurrent pleural effusion, presented with chief complaints of shortness of breath. Apparently, she was seen by her primary care doctor, Dr. Lino who ordered some outpatient labs and x-rays. She was referred to [place] for further evaluation and management. The patient has had increasing shortness of breath over the last few days. Denies any associated chest pain. No fever, chills or night sweats. She is normally on home Trilogy. We made some adjustments on her settings. She states that she continues to have difficulty with the machine itself. She has a cough productive of discolored sputum. No documented fever. PAST MEDICAL HISTORY: Chronic respiratory failure, chronic hypercapnia, sarcoids, systemic hypertension, pulmonary hypertension, diabetes, rheumatoid arthritis, obstructive sleep apnea, and liver cirrhosis. PAST SURGICAL HISTORY: Previous , Achilles tendon repair, tonsillectomy, cardiac catheterization, cholecystectomy, left mastoid surgery. FAMILY HISTORY: CVA, hypertension. SOCIAL HISTORY: She lives with her , does not smoke. REVIEW OF SYSTEMS: As indicated above, otherwise, a 10-point system was reviewed and negative. CONSTITUTIONAL: No fever or chills. EYES: No change in visual acuity. HENT: No nasal congestion or sore throat. PULMONARY: As indicated above. CARDIOVASCULAR: No chest pain. No pressure. GASTROINTESTINAL: No nausea, vomiting, or diarrhea. GENITOURINARY: No dysuria or frequency. MUSCULOSKELETAL: No localized muscle aches or joint pains. SKIN: No new skin rashes. ALLERGIES: TETANUS VACCINE, CLOTRIMAZOLE, LISINOPRIL AND LOSARTAN. CURRENT MEDICATION: List was reviewed. PHYSICAL EXAMINATION: GENERAL: The patient was off of BiPAP. VITAL SIGNS: Currently on 2 liters, saturation greater than 92%. HEENT: Eyes, the sclerae were nonicteric. NECK: Jugular venous distention could not be assessed secondary to body habitus. LUNGS: Diminished breath sounds in the bases. CARDIOVASCULAR: Regular rate and rhythm with S1, S2, no S3. ABDOMEN: Obese. EXTREMITIES: No clubbing, cyanosis. Minimal edema. NEUROLOGIC: The patient was awake, alert, following commands. A detailed neuro exam was not performed. LABORATORY DATA: Reviewed. Arterial blood gas, pH of 7.31, PaCO2 of 81, pO2 of 90. Electrolytes were noted. White count was noted to be normal. UA was noted. Chest x-ray was reviewed. There continues to be pleural effusions. IMPRESSION: 1. Exxes-yq-kagqpvo hypercapnic respiratory failure, multifactorial. 2. Nyavd-be-pogzmtd cor pulmonale. 3. Abnormal x-ray. 4. Status post previous thoracentesis, fluid analysis compatible with transudative effusion. 5. Morbid obesity. 6. History of sarcoid. 7. Obstructive sleep apnea. 8. History of cirrhosis. PLAN: 1. Recommend continue BiPAP at bedtime, oxygen during the day. 2. Diurese. 3. We will have [employer] confirm that her machine is working correctly. 4. No need for antibiotics. 5. Will follow clinical course and make further recommendations. I do appreciate the privilege in sharing in the patient's care. MARIA INES DUMONT MD DR: AB/vika JOB#: [id number] / [id number]
[2019-10-17 05:30] LABS: CALCIUM 8.5 mg/dL (8.5-10.1); CREATININE 0.8 mg/dL (0.6-1.0); MAGNESIUM 1.9 mg/dL (1.8-2.4); POTASSIUM 3.7 mmol/L (3.5-5.1)
[2019-10-17 07:25] VITALS: BP 141/65
[2019-10-17] MEDS: BUDESONIDE 0.5 MG/2 ML NEBU. NEB SCH ×2 (07:30→20:56)
[2019-10-17] MEDS: IPRATRPIUM/ALBUTEROL 0.5/2.5MG 3 ML NEBU. NEB SCH ×4 (07:30→20:56)
--- NOTE | 2019-10-17 07:40 | PDOC ---
PULMONARY PROGRESS NOTES Subjective used bipap 3-4 hrs, on home 02 2 lpm, sob better, has occ cough Vitals Vital Signs Date Time Temp Pulse Resp B/P (MAP) Pulse Ox O2 Delivery O2 Flow Rate FiO2 10/17/19 07:25 98.0 68 20 141/65 (90) 96 Nasal Cannula 2.0 98.0 ROS: No Nausea General: Alert Lungs: Other (deminished bs) Cardiovascular: S1, S2 Abdomen: Soft, Non-tender Neuro Exam: Alert Extremities: No Edema Skin: Warm Labs Laboratory Tests Test 10/15/19 19:28 10/15/19 21:05 10/15/19 22:00 10/16/19 08:13 White Blood Count 5.0 x10^3/uL (4.0-11.0) Red Blood Count 4.28 x10^6/uL (3.50-5.40) Hemoglobin 12.2 g/dL (12.0-15.5) Hematocrit 38.2 % (36.0-47.0) Mean Corpuscular Volume 89 fL (79-100) Mean Corpuscular Hemoglobin 28 pg (25-35) Mean Corpuscular Hemoglobin Concent 32 g/dL (31-37) Red Cell Distribution Width 14.5 % (11.5-14.5) Platelet Count 118 x10^3/uL (140-400) Neutrophils (%) (Auto) 75 % (31-73) Lymphocytes (%) (Auto) 15 % (24-48) Monocytes (%) (Auto) 9 % (0-9) Eosinophils (%) (Auto) 1 % (0-3) Basophils (%) (Auto) 1 % (0-3) Neutrophils # (Auto) 3.7 x10^3/uL (1.8-7.7) Lymphocytes # (Auto) 0.7 x10^3/uL (1.0-4.8) Monocytes # (Auto) 0.4 x10^3/uL (0.0-1.1) Eosinophils # (Auto) 0.1 x10^3/uL (0.0-0.7) Basophils # (Auto) 0.0 x10^3/uL (0.0-0.2) Sodium Level 145 mmol/L (136-145) Potassium Level 4.3 mmol/L (3.5-5.1) Chloride Level 103 mmol/L (98-107) Carbon Dioxide Level 41 mmol/L (21-32) Anion Gap 1 (6-14) Blood Urea Nitrogen 7 mg/dL (7-20) Creatinine 0.5 mg/dL (0.6-1.0) Estimated GFR (Cockcroft-Gault) 123.8 BUN/Creatinine Ratio 14 (6-20) Glucose Level 98 mg/dL (70-99) Calcium Level 8.7 mg/dL (8.5-10.1) Total Bilirubin 0.2 mg/dL (0.2-1.0) Aspartate Amino Transf (AST/SGOT) 40 U/L (15-37) Alanine Aminotransferase (ALT/SGPT) 37 U/L (14-59) Alkaline Phosphatase 173 U/L (46-116) Ammonia 17 mcmol/L (11-34) Troponin I Quantitative < 0.017 ng/mL (0.000-0.055) UK-Sse-M-Type Natriuretic Peptide 311 pg/mL (0-124) Total Protein 7.7 g/dL (6.4-8.2) Albumin 3.2 g/dL (3.4-5.0) Albumin/Globulin Ratio 0.7 (1.0-1.7) O2 Saturation 96 % (92-99) Arterial Blood pH 7.31 (7.35-7.45) Arterial Blood pCO2 at Patient Temp 81 mmHg (35-46) Arterial Blood pO2 at Patient Temp 90 mmHg (65-108) Arterial Blood HCO3 39 mmol/L (21-28) Arterial Blood Base Excess 10 mmol/L (-3-3) Urine Collection Type Void Urine Color Yellow Urine Clarity Clear Urine pH 7.0 Urine Specific [place] 1.020 Urine Protein Negative mg/dL (NEG-TRACE) Urine Glucose (UA) Negative mg/dL (NEG) Urine Ketones (Stick) Negative mg/dL (NEG) Urine Blood Negative (NEG) Urine Nitrite Negative (NEG) Urine Bilirubin Negative (NEG) Urine Urobilinogen Dipstick 0.2 mg/dL (0.2 mg/dL) Urine Leukocyte Esterase Small (NEG) Urine RBC Rare /HPF (0-2) Urine WBC 1-4 /HPF (0-4) Urine Squamous Epithelial Cells Few /LPF Urine Bacteria Few /HPF (0-FEW) Urine Mucus Slight /LPF Glucose (Fingerstick) 111 mg/dL (70-99) Test 10/16/19 12:08 10/16/19 13:10 10/16/19 17:34 10/16/19 21:43 Glucose (Fingerstick) 281 mg/dL (70-99) 150 mg/dL (70-99) 324 mg/dL (70-99) Sodium Level 140 mmol/L (136-145) Potassium Level 4.4 mmol/L (3.5-5.1) Chloride Level 101 mmol/L (98-107) Carbon Dioxide Level 41 mmol/L (21-32) Anion Gap -2 (6-14) Blood Urea Nitrogen 9 mg/dL (7-20) Creatinine 0.7 mg/dL (0.6-1.0) Estimated GFR (Cockcroft-Gault) 84.0 Glucose Level 317 mg/dL (70-99) Calcium Level 8.6 mg/dL (8.5-10.1) Magnesium Level 1.8 mg/dL (1.8-2.4) Test 10/17/19 04:30 10/17/19 07:29 Sodium Level 144 mmol/L (136-145) Potassium Level 3.7 mmol/L (3.5-5.1) Chloride Level 102 mmol/L (98-107) Carbon Dioxide Level 42 mmol/L (21-32) Anion Gap 0 (6-14) Blood Urea Nitrogen 10 mg/dL (7-20) Creatinine 0.8 mg/dL (0.6-1.0) Estimated GFR (Cockcroft-Gault) 72.0 Glucose Level 69 mg/dL (70-99) Calcium Level 8.5 mg/dL (8.5-10.1) Magnesium Level 1.9 mg/dL (1.8-2.4) Glucose (Fingerstick) 53 mg/dL (70-99) Laboratory Tests Test 10/16/19 08:13 10/16/19 12:08 10/16/19 13:10 10/16/19 17:34 Glucose (Fingerstick) 111 mg/dL (70-99) 281 mg/dL (70-99) 150 mg/dL (70-99) Sodium Level 140 mmol/L (136-145) Potassium Level 4.4 mmol/L (3.5-5.1) Chloride Level 101 mmol/L (98-107) Carbon Dioxide Level 41 mmol/L (21-32) Anion Gap -2 (6-14) Blood Urea Nitrogen 9 mg/dL (7-20) Creatinine 0.7 mg/dL (0.6-1.0) Estimated GFR (Cockcroft-Gault) 84.0 Glucose Level 317 mg/dL (70-99) Calcium Level 8.6 mg/dL (8.5-10.1) Magnesium Level 1.8 mg/dL (1.8-2.4) Test 10/16/19 21:43 10/17/19 04:30 10/17/19 07:29 Glucose (Fingerstick) 324 mg/dL (70-99) 53 mg/dL (70-99) Sodium Level 144 mmol/L (136-145) Potassium Level 3.7 mmol/L (3.5-5.1) Chloride Level 102 mmol/L (98-107) Carbon Dioxide Level 42 mmol/L (21-32) Anion Gap 0 (6-14) Blood Urea Nitrogen 10 mg/dL (7-20) Creatinine 0.8 mg/dL (0.6-1.0) Estimated GFR (Cockcroft-Gault) 72.0 Glucose Level 69 mg/dL (70-99) Calcium Level 8.5 mg/dL (8.5-10.1) Magnesium Level 1.9 mg/dL (1.8-2.4) Medications Active Scripts Medications Dose Route/Sig Max Daily Dose Days Date Category Dose Instructions Doxazosin Mesylate 2 Mg Tablet 1 Tab PO QHS 09/22/19 Reported Meloxicam 7.5 Mg Tablet 1 Tab PO DAILY 01/14/17 Reported Omeprazole 40 Mg Capsule. 1 Cap PO DAILY 01/14/17 Reported Spiriva (Tiotropium [place]) 18 Mcg Cap.w.dev 1 Cap IH DAILY 01/14/17 Reported Flovent 100MCG Diskus (Fluticasone Propionate) 100 Mcg Disk.w.dev 1 Puff IH BID 01/14/17 Reported Novolog Flexpen (Insulin Aspart) 100 Unit/1 Ml Insuln.pen 1 Unit SQ 01/14/17 Reported sliding scale for bg >200 Humulin 70/30 Kwikpen (Hum Insulin Nph/Reg Insulin Hm) 100 Unit/1 Ml Insuln.pen 100 Unit SQ 01/14/17 Reported 35 units in the am, 33 units at hs Toprol Xl (Metoprolol Succinate) 50 Mg Tab.er.24h 1 Tab PO DAILY 01/14/17 Reported Lyrica (Pregabalin) 150 Mg Capsule 1 Cap PO BID 01/14/17 Reported Sulfasalazine 500 Mg Tablet 1,000 Mg PO BID 01/14/17 Reported Xifaxan (Rifaximin) 550 Mg Tablet 1 Tab PO BID 01/14/17 Reported Impression . IMPRESSION: 1. Uznvg-wd-pwxswhl hypercapnic respiratory failure, multifactorial. 2. Vcfcs-ss-zvegols cor pulmonale. 3. Abnormal x-ray. 4. Status post previous thoracentesis, fluid analysis compatible with transudative effusion. 5. Morbid obesity. 6. History of sarcoid. 7. Obstructive sleep apnea. 8. History of cirrhosis. Plan . PLAN: 1. BiPAP prn during day, cont at night. the importance of use discussed. cont 02 titration 2. Diurese. monitor k, cr 3. We will have [employer] confirm that trilogy is working correctly. 4. No need for antibiotics. 5. BD, ICS Will follow clinical course and make further recommendations. discussed w pt, rn LO LAI MD Oct 17, 2019 07:40
[2019-10-17] MEDS: INSULIN NPH/REG INSULIN 70/30 300 UNITS/3 ML INSULN.PEN. SQ SCH ×3 (09:00→17:22)
--- NOTE | 2019-10-17 09:27 | PDOC ---
PROGRESS NOTES Chief Complaint Chief Complaint 1. Lmxro-ic-pdvkhgz hypercarbic respiratory failure, 2. acute on chronic diastolic CHF, right sided, cor pulmonale, 3. bilateral pleural effusion, s/p thoracentesis 4. DM2, insulin, on 70/30 with hypoglycemia on home dose this AM, 5. morbids obesity, BMI maybe 50, listed weight is not correct, pickwickian appearance, 6. . CAROLE some restrictive lung disease, History of Present Illness History of Present Illness slept OK on the BIPAP weakness is a problem, will order PT adn OT tele, stable, rate 85, sinus, may be able to DC tele, PULM following, not sure if paracentesis would be of any benefit from CXR, m ay need CT scan to further eval, Vitals Vitals Vital Signs Date Time Temp Pulse Resp B/P (MAP) Pulse Ox O2 Delivery O2 Flow Rate FiO2 10/17/19 07:40 95 Nasal Cannula 2.0 10/17/19 07:25 98.0 68 20 141/65 (90) 98.0 Physical Exam General: Alert, Oriented X3, Cooperative, No acute distress Heart: Regular rate (SR), Other (distant heart sounds) Lungs: Clear, Other (limited vol, seems restricted, ) Extremities: No cyanosis, Other (2+ bilateral LE pitting edema) Skin: No breakdown Labs LABS Laboratory Tests Test 10/16/19 12:08 10/16/19 13:10 10/16/19 17:34 10/16/19 21:43 Glucose (Fingerstick) 281 mg/dL (70-99) 150 mg/dL (70-99) 324 mg/dL (70-99) Sodium Level 140 mmol/L (136-145) Potassium Level 4.4 mmol/L (3.5-5.1) Chloride Level 101 mmol/L (98-107) Carbon Dioxide Level 41 mmol/L (21-32) Anion Gap -2 (6-14) Blood Urea Nitrogen 9 mg/dL (7-20) Creatinine 0.7 mg/dL (0.6-1.0) Estimated GFR (Cockcroft-Gault) 84.0 Glucose Level 317 mg/dL (70-99) Calcium Level 8.6 mg/dL (8.5-10.1) Magnesium Level 1.8 mg/dL (1.8-2.4) Test 10/17/19 04:30 10/17/19 07:29 10/17/19 08:57 Sodium Level 144 mmol/L (136-145) Potassium Level 3.7 mmol/L (3.5-5.1) Chloride Level 102 mmol/L (98-107) Carbon Dioxide Level 42 mmol/L (21-32) Anion Gap 0 (6-14) Blood Urea Nitrogen 10 mg/dL (7-20) Creatinine 0.8 mg/dL (0.6-1.0) Estimated GFR (Cockcroft-Gault) 72.0 Glucose Level 69 mg/dL (70-99) Calcium Level 8.5 mg/dL (8.5-10.1) Magnesium Level 1.9 mg/dL (1.8-2.4) Glucose (Fingerstick) 53 mg/dL (70-99) 126 mg/dL (70-99) Assessment and Plan Assessmemt and Plan Problems Medical Problems: (1) Dyspnea Status: Acute Comment Review of Relevant I have reviewed the following items niko (where applicable) has been applied. Labs Laboratory Tests Test 10/15/19 19:28 10/15/19 21:05 10/15/19 22:00 10/16/19 08:13 White Blood Count 5.0 x10^3/uL (4.0-11.0) Red Blood Count 4.28 x10^6/uL (3.50-5.40) Hemoglobin 12.2 g/dL (12.0-15.5) Hematocrit 38.2 % (36.0-47.0) Mean Corpuscular Volume 89 fL (79-100) Mean Corpuscular Hemoglobin 28 pg (25-35) Mean Corpuscular Hemoglobin Concent 32 g/dL (31-37) Red Cell Distribution Width 14.5 % (11.5-14.5) Platelet Count 118 x10^3/uL (140-400) Neutrophils (%) (Auto) 75 % (31-73) Lymphocytes (%) (Auto) 15 % (24-48) Monocytes (%) (Auto) 9 % (0-9) Eosinophils (%) (Auto) 1 % (0-3) Basophils (%) (Auto) 1 % (0-3) Neutrophils # (Auto) 3.7 x10^3/uL (1.8-7.7) Lymphocytes # (Auto) 0.7 x10^3/uL (1.0-4.8) Monocytes # (Auto) 0.4 x10^3/uL (0.0-1.1) Eosinophils # (Auto) 0.1 x10^3/uL (0.0-0.7) Basophils # (Auto) 0.0 x10^3/uL (0.0-0.2) Sodium Level 145 mmol/L (136-145) Potassium Level 4.3 mmol/L (3.5-5.1) Chloride Level 103 mmol/L (98-107) Carbon Dioxide Level 41 mmol/L (21-32) Anion Gap 1 (6-14) Blood Urea Nitrogen 7 mg/dL (7-20) Creatinine 0.5 mg/dL (0.6-1.0) Estimated GFR (Cockcroft-Gault) 123.8 BUN/Creatinine Ratio 14 (6-20) Glucose Level 98 mg/dL (70-99) Calcium Level 8.7 mg/dL (8.5-10.1) Total Bilirubin 0.2 mg/dL (0.2-1.0) Aspartate Amino Transf (AST/SGOT) 40 U/L (15-37) Alanine Aminotransferase (ALT/SGPT) 37 U/L (14-59) Alkaline Phosphatase 173 U/L (46-116) Ammonia 17 mcmol/L (11-34) Troponin I Quantitative < 0.017 ng/mL (0.000-0.055) QG-Myh-F-Type Natriuretic Peptide 311 pg/mL (0-124) Total Protein 7.7 g/dL (6.4-8.2) Albumin 3.2 g/dL (3.4-5.0) Albumin/Globulin Ratio 0.7 (1.0-1.7) O2 Saturation 96 % (92-99) Arterial Blood pH 7.31 (7.35-7.45) Arterial Blood pCO2 at Patient Temp 81 mmHg (35-46) Arterial Blood pO2 at Patient Temp 90 mmHg (65-108) Arterial Blood HCO3 39 mmol/L (21-28) Arterial Blood Base Excess 10 mmol/L (-3-3) Urine Collection Type Void Urine Color Yellow Urine Clarity Clear Urine pH 7.0 Urine Specific [place] 1.020 Urine Protein Negative mg/dL (NEG-TRACE) Urine Glucose (UA) Negative mg/dL (NEG) Urine Ketones (Stick) Negative mg/dL (NEG) Urine Blood Negative (NEG) Urine Nitrite Negative (NEG) Urine Bilirubin Negative (NEG) Urine Urobilinogen Dipstick 0.2 mg/dL (0.2 mg/dL) Urine Leukocyte Esterase Small (NEG) Urine RBC Rare /HPF (0-2) Urine WBC 1-4 /HPF (0-4) Urine Squamous Epithelial Cells Few /LPF Urine Bacteria Few /HPF (0-FEW) Urine Mucus Slight /LPF Glucose (Fingerstick) 111 mg/dL (70-99) Test 10/16/19 12:08 10/16/19 13:10 10/16/19 17:34 10/16/19 21:43 Glucose (Fingerstick) 281 mg/dL (70-99) 150 mg/dL (70-99) 324 mg/dL (70-99) Sodium Level 140 mmol/L (136-145) Potassium Level 4.4 mmol/L (3.5-5.1) Chloride Level 101 mmol/L (98-107) Carbon Dioxide Level 41 mmol/L (21-32) Anion Gap -2 (6-14) Blood Urea Nitrogen 9 mg/dL (7-20) Creatinine 0.7 mg/dL (0.6-1.0) Estimated GFR (Cockcroft-Gault) 84.0 Glucose Level 317 mg/dL (70-99) Calcium Level 8.6 mg/dL (8.5-10.1) Magnesium Level 1.8 mg/dL (1.8-2.4) Test 10/17/19 04:30 10/17/19 07:29 10/17/19 08:57 Sodium Level 144 mmol/L (136-145) Potassium Level 3.7 mmol/L (3.5-5.1) Chloride Level 102 mmol/L (98-107) Carbon Dioxide Level 42 mmol/L (21-32) Anion Gap 0 (6-14) Blood Urea Nitrogen 10 mg/dL (7-20) Creatinine 0.8 mg/dL (0.6-1.0) Estimated GFR (Cockcroft-Gault) 72.0 Glucose Level 69 mg/dL (70-99) Calcium Level 8.5 mg/dL (8.5-10.1) Magnesium Level 1.9 mg/dL (1.8-2.4) Glucose (Fingerstick) 53 mg/dL (70-99) 126 mg/dL (70-99) Laboratory Tests Test 10/16/19 12:08 10/16/19 13:10 10/16/19 17:34 10/16/19 21:43 Glucose (Fingerstick) 281 mg/dL (70-99) 150 mg/dL (70-99) 324 mg/dL (70-99) Sodium Level 140 mmol/L (136-145) Potassium Level 4.4 mmol/L (3.5-5.1) Chloride Level 101 mmol/L (98-107) Carbon Dioxide Level 41 mmol/L (21-32) Anion Gap -2 (6-14) Blood Urea Nitrogen 9 mg/dL (7-20) Creatinine 0.7 mg/dL (0.6-1.0) Estimated GFR (Cockcroft-Gault) 84.0 Glucose Level 317 mg/dL (70-99) Calcium Level 8.6 mg/dL (8.5-10.1) Magnesium Level 1.8 mg/dL (1.8-2.4) Test 10/17/19 04:30 10/17/19 07:29 10/17/19 08:57 Sodium Level 144 mmol/L (136-145) Potassium Level 3.7 mmol/L (3.5-5.1) Chloride Level 102 mmol/L (98-107) Carbon Dioxide Level 42 mmol/L (21-32) Anion Gap 0 (6-14) Blood Urea Nitrogen 10 mg/dL (7-20) Creatinine 0.8 mg/dL (0.6-1.0) Estimated GFR (Cockcroft-Gault) 72.0 Glucose Level 69 mg/dL (70-99) Calcium Level 8.5 mg/dL (8.5-10.1) Magnesium Level 1.9 mg/dL (1.8-2.4) Glucose (Fingerstick) 53 mg/dL (70-99) 126 mg/dL (70-99) Medications Current Medications Insulin Human Isoph/Insulin Regular (HumuLIN 70/30) SLIDING SCALE PER PATIENT NOON SQ Last administered on 10/16/19at 12:57; Start 10/16/19 at 12:00 Meloxicam (Mobic) 7.5 mg DAILY PO Last administered on 10/16/19 13:54; Start 10/16/19 at 13:00 Rifaximin (Xifaxan) 550 mg BID PO Last administered on 10/16/19 21:51; Start 10/16/19 at 13:00 Sulfasalazine (Azulfidine) 1,000 mg BID PO Last administered on 10/16/19 21:53; Start 10/16/19 at 13:00 Doxazosin Mesylate (Cardura) 2 mg QHS PO Last administered on 10/16/19 21:52; Start 10/16/19 at 21:00 Budesonide (Pulmicort) 0.5 mg RTBID NEB Last administered on 10/17/19 07:30; Start 10/16/19 at 20:00 Metoprolol Succinate (Toprol Xl) 50 mg DAILY PO Last administered on 10/16/19 13:55; Start 10/16/19 at 13:00 Pantoprazole Sodium (Protonix) 40 mg DAILYAC PO Last administered on 10/16/19 13:56; Start 10/16/19 at 13:00 Pregabalin (Lyrica) 150 mg BID PO Last administered on 10/16/19 21:50; Start 10/16/19 at 13:00 Albuterol/ Ipratropium (Duoneb) 3 ml RTQID NEB Last administered on 10/17/19 07:30; Start 10/16/19 at 16:00 Insulin Human Isoph/Insulin Regular (HumuLIN 70/30) 35 units DAILY SQ ; Start 10/17/19 at 09:00 Insulin Human Isoph/Insulin Regular (HumuLIN 70/30) 33 units QPM SQ Last administered on 10/16/19at 18:29; Start 10/16/19 at 18:00 Furosemide (Lasix) 40 mg 1X ONCE IVP Last administered on 10/16/19 13:54; Start 10/16/19 at 13:30; Stop 10/16/19 at 13:31; Status DC Furosemide (Lasix) 40 mg DAILY IVP ; Start 10/17/19 at 09:00 Active Scripts Active Reported Doxazosin Mesylate 2 Mg Tablet 1 Tab PO QHS Meloxicam 7.5 Mg Tablet 1 Tab PO DAILY Omeprazole 40 Mg Capsule.dr 1 Cap PO DAILY Spiriva (Tiotropium [place]) 18 Mcg Cap.w.dev 1 Cap IH DAILY Flovent 100MCG Diskus (Fluticasone Propionate) 100 Mcg Disk.w.dev 1 Puff IH BID Novolog Flexpen (Insulin Aspart) 100 Unit/1 Ml Insuln.pen 1 Unit SQ sliding scale for bg >200 Humulin 70/30 Kwikpen (Hum Insulin Nph/Reg Insulin Hm) 100 Unit/1 Ml Insuln.pen 100 Unit SQ 35 units in the am, 33 units at hs Toprol Xl (Metoprolol Succinate) 50 Mg Tab.er.24h 1 Tab PO DAILY Lyrica (Pregabalin) 150 Mg Capsule 1 Cap PO BID Sulfasalazine 500 Mg Tablet 1,000 Mg PO BID Xifaxan (Rifaximin) 550 Mg Tablet 1 Tab PO BID Vitals/I & O Vital Sign - Last 24 Hours 10/16/19 10/16/19 10/16/19 10/16/19 11:00 13:55 15:00 19:35 Temp 98.1 98.0 98.0 98.1 98.0 98.0 Pulse 81 81 75 87 Resp 20 20 20 B/P (MAP) 141/70 (93) 141/70 175/74 (107) 190/84 (119) Pulse Ox 96 97 97 O2 Delivery Nasal Cannula Nasal Cannula Nasal Cannula O2 Flow Rate 2.0 2.0 2.0 10/16/19 10/16/19 10/16/19 10/16/19 20:00 20:26 20:27 21:52 Pulse 92 B/P (MAP) 163/71 Pulse Ox 95 95 O2 Delivery Nasal Cannula Nasal Cannula Nasal Cannula O2 Flow Rate 2.0 2.0 2.0 10/16/19 10/17/19 10/17/19 10/17/19 23:45 00:12 03:04 03:40 Temp 98.3 97.3 98.3 97.3 Pulse 82 66 Resp 20 20 B/P (MAP) 163/72 (102) 104/54 (71) Pulse Ox 97 96 96 93 O2 Delivery Nasal Cannula BiPAP/CPAP BiPAP/CPAP BiPAP/CPAP O2 Flow Rate 2.0 10/17/19 10/17/19 07:25 07:40 Temp 98.0 98.0 Pulse 68 Resp 20 B/P (MAP) 141/65 (90) Pulse Ox 96 95 O2 Delivery Nasal Cannula Nasal Cannula O2 Flow Rate 2.0 2.0 Intake and Output 10/16/19 10/16/19 10/17/19 15:00 23:00 07:00 Intake Total 500 ml 250 ml Output Total 75 ml 1700 ml 350 ml Balance -75 ml -1200 ml -100 ml SELENE NETTLES MD Oct 17, 2019 09:27
[2019-10-17] MEDS: PANTOPRAZOLE 40 MG TABLET.DR. PO SCH (10:00)
[2019-10-17] MEDS: sulfaSALAzine 500 MG TABLET PO SCH ×2 (10:00→21:09)
[2019-10-17] MEDS: MELOXICAM 7.5 MG TABLET PO SCH (10:00)
[2019-10-17] MEDS: PREGABALIN 75 MG CAPSULE PO SCH ×2 (10:00→21:09)
[2019-10-17] MEDS: rifAXIMin 550 MG TABLET PO SCH ×2 (10:00→21:09)
[2019-10-17] MEDS: METOPROLOL SUCC 24HR ER 50 MG TAB.ER.24H. PO SCH (10:01)
[2019-10-17] MEDS: FUROSEMIDE 40 MG/4 ML VIAL. IVP SCH (10:02)
[2019-10-17 10:11] VITALS: BP 150/68
[2019-10-17] MEDS ORDERED: DEXTROSE 50% 25 GM / 50ML DISP.SYRIN. IV PRN (13:15)
[2019-10-17] MEDS: INSULIN LISPRO 300 UNITS/3 ML VIAL. SQ SCH ×2 (13:36→18:04)
[2019-10-17 14:30] VITALS: BP 112/54
[2019-10-17] MEDS ORDERED: ACETAMINOPHEN 325 MG TABLET. PO PRN (16:15)
--- NOTE | 2019-10-17 16:51 | NUR ---
pts blood sugar at shift change was 53. Juice given as pt was able to respond appropriately and requested juice. Dr Pisano notfied and pts insulin needs readjusted. At lunch time the pt requested 4 units of the Humalog only and not the Humilin. The pt is not eating very well and is having a difficult time staying alert later in the shift. Dr Pisano called and spoke with respiratory about checking the pts ABGS. Respiratory recommended to check after 10 minutes prior to recieving breathing tx. Pt put back on bipap andf symptoms improved. Pt alert answering questions, vitals stable and blood sugar checked as well. Pts took the bipap mask off the pt and pts Desated. Educated pt and on the importance of the pt breathing with bipap and to not take the mask off the pt at this time. Will continue to monitor pt.
[2019-10-17 19:00] VITALS: BP 96/50
[2019-10-17] MEDS: DOXAZOSIN MESYLATE 1 MG TABLET. PO SCH (21:00)
[2019-10-17 23:09] VITALS: BP 107/51
[2019-10-18 03:11] VITALS: BP 103/55
[2019-10-18 07:24] VITALS: BP 140/93
[2019-10-18] MEDS: IPRATRPIUM/ALBUTEROL 0.5/2.5MG 3 ML NEBU. NEB SCH ×4 (07:53→20:07)
[2019-10-18] MEDS: BUDESONIDE 0.5 MG/2 ML NEBU. NEB SCH ×2 (07:54→20:07)
[2019-10-18] MEDS: rifAXIMin 550 MG TABLET PO SCH ×2 (08:20→21:00)
[2019-10-18] MEDS: sulfaSALAzine 500 MG TABLET PO SCH ×2 (08:20→21:00)
[2019-10-18] MEDS: PANTOPRAZOLE 40 MG TABLET.DR. PO SCH (08:21)
[2019-10-18] MEDS: PREGABALIN 75 MG CAPSULE PO SCH ×2 (08:21→21:01)
[2019-10-18] MEDS: METOPROLOL SUCC 24HR ER 50 MG TAB.ER.24H. PO SCH (08:21)
[2019-10-18] MEDS: MELOXICAM 7.5 MG TABLET PO SCH (08:21)
[2019-10-18] MEDS: FUROSEMIDE 40 MG/4 ML VIAL. IVP SCH (08:22)
[2019-10-18] MEDS: INSULIN NPH/REG INSULIN 70/30 300 UNITS/3 ML INSULN.PEN. SQ SCH ×3 (08:24→17:48)
--- NOTE | 2019-10-18 08:24 | PDOC ---
PULMONARY PROGRESS NOTES Subjective used bipap last night, on home 02 2 lpm and trilogy at night, sob better, has occ cough Vitals Vital Signs Date Time Temp Pulse Resp B/P (MAP) Pulse Ox O2 Delivery O2 Flow Rate FiO2 10/18/19 07:56 94 10/18/19 07:24 97.5 57 20 140/93 (109) BiPAP/CPAP 97.5 10/17/19 20:22 2.0 ROS: No Nausea General: Alert Lungs: Crackles Cardiovascular: S1, S2 Abdomen: Soft, Non-tender Neuro Exam: Alert Extremities: No Edema Skin: Warm Labs Laboratory Tests Test 10/16/19 12:08 10/16/19 13:10 10/16/19 17:34 10/16/19 21:43 Glucose (Fingerstick) 281 mg/dL (70-99) 150 mg/dL (70-99) 324 mg/dL (70-99) Sodium Level 140 mmol/L (136-145) Potassium Level 4.4 mmol/L (3.5-5.1) Chloride Level 101 mmol/L (98-107) Carbon Dioxide Level 41 mmol/L (21-32) Anion Gap -2 (6-14) Blood Urea Nitrogen 9 mg/dL (7-20) Creatinine 0.7 mg/dL (0.6-1.0) Estimated GFR (Cockcroft-Gault) 84.0 Glucose Level 317 mg/dL (70-99) Calcium Level 8.6 mg/dL (8.5-10.1) Magnesium Level 1.8 mg/dL (1.8-2.4) Test 10/17/19 04:30 10/17/19 07:29 10/17/19 08:57 10/17/19 11:28 Sodium Level 144 mmol/L (136-145) Potassium Level 3.7 mmol/L (3.5-5.1) Chloride Level 102 mmol/L (98-107) Carbon Dioxide Level 42 mmol/L (21-32) Anion Gap 0 (6-14) Blood Urea Nitrogen 10 mg/dL (7-20) Creatinine 0.8 mg/dL (0.6-1.0) Estimated GFR (Cockcroft-Gault) 72.0 Glucose Level 69 mg/dL (70-99) Calcium Level 8.5 mg/dL (8.5-10.1) Magnesium Level 1.9 mg/dL (1.8-2.4) Glucose (Fingerstick) 53 mg/dL (70-99) 126 mg/dL (70-99) 214 mg/dL (70-99) Test 10/17/19 15:35 10/17/19 16:23 10/17/19 20:26 10/18/19 07:26 Glucose (Fingerstick) 241 mg/dL (70-99) 227 mg/dL (70-99) 198 mg/dL (70-99) 214 mg/dL (70-99) Laboratory Tests Test 10/17/19 08:57 10/17/19 11:28 10/17/19 15:35 10/17/19 16:23 Glucose (Fingerstick) 126 mg/dL (70-99) 214 mg/dL (70-99) 241 mg/dL (70-99) 227 mg/dL (70-99) Test 10/17/19 20:26 10/18/19 07:26 Glucose (Fingerstick) 198 mg/dL (70-99) 214 mg/dL (70-99) Medications Active Scripts Medications Dose Route/Sig Max Daily Dose Days Date Category Dose Instructions Doxazosin Mesylate 2 Mg Tablet 1 Tab PO QHS 09/22/19 Reported Meloxicam 7.5 Mg Tablet 1 Tab PO DAILY 01/14/17 Reported Omeprazole 40 Mg Capsule.dr 1 Cap PO DAILY 01/14/17 Reported Spiriva (Tiotropium [place]) 18 Mcg Cap.w.dev 1 Cap IH DAILY 01/14/17 Reported Flovent 100MCG Diskus (Fluticasone Propionate) 100 Mcg Disk.w.dev 1 Puff IH BID 01/14/17 Reported Novolog Flexpen (Insulin Aspart) 100 Unit/1 Ml Insuln.pen 1 Unit SQ 01/14/17 Reported sliding scale for bg >200 Humulin 70/30 Kwikpen (Hum Insulin Nph/Reg Insulin Hm) 100 Unit/1 Ml Insuln.pen 100 Unit SQ 01/14/17 Reported 35 units in the am, 33 units at hs Toprol Xl (Metoprolol Succinate) 50 Mg Tab.er.24h 1 Tab PO DAILY 01/14/17 Reported Lyrica (Pregabalin) 150 Mg Capsule 1 Cap PO BID 01/14/17 Reported Sulfasalazine 500 Mg Tablet 1,000 Mg PO BID 01/14/17 Reported Xifaxan (Rifaximin) 550 Mg Tablet 1 Tab PO BID 01/14/17 Reported Impression . IMPRESSION: 1. Vweyo-xq-ovwmlcv hypercapnic respiratory failure, multifactorial. 2. Elgaz-ml-rxdbluf cor pulmonale. 3. Abnormal x-ray. 4. Status post previous thoracentesis, fluid analysis compatible with transudative effusion. 5. Morbid obesity. 6. History of sarcoid. 7. Obstructive sleep apnea. 8. History of cirrhosis. Plan . PLAN: 1. BiPAP prn during day, cont at night. the importance of use discussed. cont 02 titration 2. Diurese. monitor k, cr 3. We will have [employer] confirm that trilogy is working correctly. 4. No need for antibiotics. 5. BD, ICS 6. cxr in am Will follow clinical course and make further recommendations. discussed w pt, rn LO LAI MD Oct 18, 2019 08:24
[2019-10-18] MEDS: INSULIN LISPRO 300 UNITS/3 ML VIAL. SQ SCH ×3 (08:25→16:33)
[2019-10-18 10:13] VITALS: BP 138/59
--- NOTE | 2019-10-18 12:27 | SNU/HH DC ---
DISCHARGE WITH HOME HEALTH DISCHARGE INFORMATION: Discharge Date: Oct 18, 2019 Final Diagnosis: Problems Medical Problems: (1) Dyspnea Status: Acute Condition on Discharge: Stable CODE STATUS: Code Status: Full HOME HEALTH: Face to Face: I certify this patient is under my care and that I, or a nurse practitioner or physician's butcher assistant working with me, had a face to face encounter that meets the physician face to face encounter requirements with this patient on 10/18, []. Medical Complications: CHF, COPD, DM Care Home For: Assess Cardiopulm Status RN For Eval/Treatment: Yes Pt Meets Homebound Status: Poor coordination w/ amb., Unsteady balance w/ amb, POST DISCHARGE ORDERS: Activity Instructions for Disc: No restrictions Weight Bearing Status after Di: No restrictions DIET AFTER DISCHARGE: ADA Wound/Incision Care: Keep wound/cast CDI CHECKS AFTER DISCHARGE: Checks after discharge: Check blood sugar, ac/hs, Weigh Yourself Daily FOLLOW-UP: Follow up with: primary care Additional Instructions: please make sure her trilogy works CERTIFICATION STATEMENT: Certification Statement: Certification Statement: Based on the above finding, I certify that this patient is confined to the home and needs intermittent chcf care, physical therapy and/or speech therapy, or continues to need occupational therapy.~ This patient is under my care, and I have initiated the establishment of the plan of care.~ This patient will be followed by myself or a community physician who will periodically review the plan of care. Home Meds Reported Medications Doxazosin Mesylate (DOXAZOSIN MESYLATE) 2 Mg Tablet, 1 TAB PO QHS for Hypertension 09/22/19 Meloxicam (MELOXICAM) 7.5 Mg Tablet, 1 TAB PO DAILY, #30 TAB 2 Refills 01/14/17 Omeprazole (OMEPRAZOLE) 40 Mg Capsule.dr, 1 CAP PO DAILY, #30 CAP 3 Refills 01/14/17 Tiotropium Wagner (SPIRIVA) 18 Mcg Cap.w.dev, 1 CAP IH DAILY, #30 CAP 3 Refills 01/14/17 Fluticasone Propionate (FLOVENT 100MCG DISKUS) 100 Mcg Disk.w.dev, 1 PUFF IH BID, #1 INHALER 5 Refills 01/14/17 Insulin Aspart (NOVOLOG FLEXPEN) 100 Unit/1 Ml Insuln.pen, 1 UNIT SQ, SYR sliding scale for bg >200 01/14/17 Hum Insulin Nph/Reg Insulin Hm (HUMULIN 70/30 KWIKPEN) 100 Unit/1 Ml Insuln.pen, 100 UNIT SQ, EACH 35 units in the am, 33 units at hs 01/14/17 Metoprolol Succinate (TOPROL XL) 50 Mg Tab.er.24h, 1 TAB PO DAILY, #30 TAB 5 Refills 01/14/17 Pregabalin (LYRICA) 150 Mg Capsule, 1 CAP PO BID, #60 CAP 5 Refills 01/14/17 Sulfasalazine (SULFASALAZINE) 500 Mg Tablet, 1000 MG PO BID for Rheumatoid arthritis, TAB 01/14/17 Rifaximin (XIFAXAN) 550 Mg Tablet, 1 TAB PO BID, #28 TAB 01/14/17 SELENE NETTLES MD Oct 18, 2019 12:27
--- NOTE | 2019-10-18 12:44 | PDOC3 ---
Discharge Summary Visit Information Date of Admission: Oct 15, 2019 Date of Discharge: Oct 18, 2019 Final Diagnosis 1. Meqke-vm-mrpjjgz hypercarbic respiratory failure, 2. acute on chronic diastolic CHF, right sided, cor pulmonale, 3. bilateral pleural effusion, s/p thoracentesis 4. DM2, insulin, on 70/30 with hypoglycemia on home dose this AM, 5. morbids obesity, BMI maybe 50, listed weight is not correct, pickwickian appearance, 6. . CAROLE some restrictive lung disease, Problems Medical Problems: (1) Dyspnea Status: Acute Brief Hospital Course Allergies Allergies Coded Allergies Type Severity Reaction Last Updated Verified Tetanus Vaccines and Toxoid Allergy Intermediate 01/14/17 Yes clotrimazole Allergy Intermediate 01/14/17 Yes lisinopril Allergy Intermediate 01/14/17 Yes losartan Allergy Intermediate 01/14/17 Yes Vital Signs Vital Signs Date Time Temp Pulse Resp B/P (MAP) Pulse Ox O2 Delivery O2 Flow Rate FiO2 10/18/19 11:53 96 BiPAP/CPAP 2.0 10/18/19 10:13 97.8 74 20 138/59 (85) 97.8 Lab Results Laboratory Tests Test 10/16/19 13:10 10/16/19 17:34 10/16/19 21:43 10/17/19 04:30 Sodium Level 140 mmol/L (136-145) 144 mmol/L (136-145) Potassium Level 4.4 mmol/L (3.5-5.1) 3.7 mmol/L (3.5-5.1) Chloride Level 101 mmol/L (98-107) 102 mmol/L (98-107) Carbon Dioxide Level 41 mmol/L (21-32) 42 mmol/L (21-32) Anion Gap -2 (6-14) 0 (6-14) Blood Urea Nitrogen 9 mg/dL (7-20) 10 mg/dL (7-20) Creatinine 0.7 mg/dL (0.6-1.0) 0.8 mg/dL (0.6-1.0) Estimated GFR (Cockcroft-Gault) 84.0 72.0 Glucose Level 317 mg/dL (70-99) 69 mg/dL (70-99) Calcium Level 8.6 mg/dL (8.5-10.1) 8.5 mg/dL (8.5-10.1) Magnesium Level 1.8 mg/dL (1.8-2.4) 1.9 mg/dL (1.8-2.4) Glucose (Fingerstick) 150 mg/dL (70-99) 324 mg/dL (70-99) Test 10/17/19 07:29 10/17/19 08:57 10/17/19 11:28 10/17/19 15:35 Glucose (Fingerstick) 53 mg/dL (70-99) 126 mg/dL (70-99) 214 mg/dL (70-99) 241 mg/dL (70-99) Test 10/17/19 16:23 10/17/19 20:26 10/18/19 07:26 10/18/19 11:38 Glucose (Fingerstick) 227 mg/dL (70-99) 198 mg/dL (70-99) 214 mg/dL (70-99) 200 mg/dL (70-99) Laboratory Tests Test 10/17/19 15:35 10/17/19 16:23 10/17/19 20:26 10/18/19 07:26 Glucose (Fingerstick) 241 mg/dL (70-99) 227 mg/dL (70-99) 198 mg/dL (70-99) 214 mg/dL (70-99) Test 10/18/19 11:38 Glucose (Fingerstick) 200 mg/dL (70-99) Brief Hospital Course Ms. Mc is a 64 old admit with acute dyspnea on chronic slept OK on the BIPAP weakness is a problem, will order PT adn OT, home health PULM following, Discharge Information Condition at Discharge: Improved Follow Up: Weeks Disposition/Orders: D/C to Home w/ HH Scheduled Doxazosin Mesylate (Doxazosin Mesylate) 2 Mg Tablet, 1 TAB PO QHS for Hypertension, (Reported) Entered as Reported by: BRETT CASAS on 09/22/19 1248 Last Action: Edited on 10/16/19 1244 by JUSTIN BERMUDEZ [facility] Fluticasone Propionate (Flovent 100MCG Diskus) 100 Mcg Disk.w.dev, 1 PUFF IH BID, #1 Ref 5 (Reported) Entered as Reported by: DALIA CHI on 01/14/17 1114 Last Action: Converted on 10/16/191226 by ESTRELLITA RODRIGEZ Meloxicam (Meloxicam) 7.5 Mg Tablet, 1 TAB PO DAILY, #30 Ref 2 (Reported) Entered as Reported by: DALIA CHI on 01/14/171113 Last Action: Continued on 10/16/191226 by ESTRELLITA RODRIGEZ Metoprolol Succinate (Toprol Xl) 50 Mg Tab.er.24h, 1 TAB PO DAILY, #30 Ref 5 (Re ported) Entered as Reported by: DALIA CHI on 01/14/171113 Last Action: Converted on 10/16/191226 by ESTRELLITA RODRIGEZ Omeprazole (Omeprazole) 40 Mg Capsule.dr, 1 CAP PO DAILY, #30 Ref 3 (Reported) Entered as Reported by: DALIA CHI on 01/14/171113 Last Action: Converted on 10/16/191226 by ESTRELLITA RODRIGEZ Pregabalin (Lyrica) 150 Mg Capsule, 1 CAP PO BID, #60 Ref 5 (Reported) Entered as Reported by: DALIA CHI on 01/14/171113 Last Action: Converted on 10/16/191226 by ESTRELLITA RODRIGEZ Rifaximin (Xifaxan) 550 Mg Tablet, 1 TAB PO BID, #28 (Reported) Entered as Reported by: DALIA CHI on 01/14/171113 Last Action: Continued on 10/16/191226 by ESTRELLITA RODRIGEZ Sulfasalazine (Sulfasalazine) 500 Mg Tablet, 1,000 MG PO BID for Rheumatoid arthritis, (Reported) Entered as Reported by: DALIA CHI on 01/14/171113 Last Action: Continued on 10/16/191226 by ESTRELLITA RODRIGEZ Tiotropium [place] (Spiriva) 18 Mcg Cap.w.dev, 1 CAP IH DAILY, #30 Ref 3 (Reported) Entered as Reported by: DALIA CHI on 01/14/171113 Last Action: Converted on 10/16/191226 by ESTRELLITA RODRIGEZ Miscellaneous Medications Hum Insulin Nph/Reg Insulin Hm (Humulin 70/30 Kwikpen) 100 Unit/1 Ml Insuln.pen, 100 UNIT SQ, (Reported) 35 units in the am, 33 units at hs Entered as Reported by: DALIA CHI on 01/14/171113 Last Action: Continued on 10/16/191226 by ESTRELLITA RODRIGEZ Insulin Aspart (Novolog Flexpen) 100 Unit/1 Ml Insuln.pen, 1 UNIT SQ, (Reported) sliding scale for bg >200 Entered as Reported by: DALIA CHI on 01/14/17 1114 Last Action: Reviewed on 10/16/19317 by SIMONE HERERRA, CAMMY Patient Instructions Patient Instructions .> 30 min face to face SELENE NETTLES MD Oct 18, 2019 12:44
[2019-10-18 14:39] VITALS: BP 154/70
[2019-10-18 18:13] VITALS: BP 147/91
[2019-10-18] MEDS: DOXAZOSIN MESYLATE 1 MG TABLET. PO SCH (21:02)
[2019-10-18 23:34] VITALS: BP 159/68
[2019-10-19 03:00] VITALS: BP 112/56
[2019-10-19] MEDS: BUDESONIDE 0.5 MG/2 ML NEBU. NEB SCH (06:11)
[2019-10-19] MEDS: IPRATRPIUM/ALBUTEROL 0.5/2.5MG 3 ML NEBU. NEB SCH ×2 (06:11→11:56)
[2019-10-19 07:00] VITALS: BP 146/65
[2019-10-19] MEDS: INSULIN LISPRO 300 UNITS/3 ML VIAL. SQ SCH ×2 (08:00→12:55)
[2019-10-19] MEDS: METOPROLOL SUCC 24HR ER 50 MG TAB.ER.24H. PO SCH (09:28)
[2019-10-19] MEDS: PANTOPRAZOLE 40 MG TABLET.DR. PO SCH (09:28)
[2019-10-19] MEDS: PREGABALIN 75 MG CAPSULE PO SCH (09:29)
[2019-10-19] MEDS: sulfaSALAzine 500 MG TABLET PO SCH (09:29)
[2019-10-19] MEDS: rifAXIMin 550 MG TABLET PO SCH (09:29)
[2019-10-19] MEDS: MELOXICAM 7.5 MG TABLET PO SCH (09:29)
[2019-10-19] MEDS: FUROSEMIDE 40 MG/4 ML VIAL. IVP SCH (09:30)
[2019-10-19] MEDS: INSULIN NPH/REG INSULIN 70/30 300 UNITS/3 ML INSULN.PEN. SQ SCH ×2 (09:41→12:00)
--- NOTE | 2019-10-19 10:18 | PDOC ---
[facility] [facility] PROGRESS NOTE Chief Complaint Chief Complaint 1. Ovqbd-xm-easbtkz hypercarbic respiratory failure, 2. acute on chronic diastolic CHF, right sided, cor pulmonale, 3. bilateral pleural effusion, s/p thoracentesis 4. DM2, insulin, on 70/30 with hypoglycemia on home dose this AM, 5. morbids obesity, BMI maybe 50, listed weight is not correct, pickwickian appearance, 6. . CAROLE some restrictive lung disease, History of Present Illness History of Present Illness 10/17/2019 -slept OK on the BIPAP -weakness is a problem, will order PT/OT -Tele, stable, rate 85, sinus, may be able to DC tele, -PULM following, not sure if paracentesis would be of any benefit from CXR, may need CT scan to further eval 10/19/2019 -Pt seen and examined. -Chart reviewed and care discussed with nursing staff. -Pt sitting comfortably in wheel chair. She has no new complaints at this time. Pulm following. She is headed to [facility] for chest xray. Discussed probably discharge today once she obtains her [employer] machine she will need at home. Patient agrees with plan. Will follow. Vitals/I&O Vitals/I&O: Vital Signs Date Time Temp Pulse Resp B/P (MAP) Pulse Ox O2 Delivery O2 Flow Rate FiO2 10/19/19 09:28 83 146/65 10/19/19 07:00 97.3 20 98 Nasal Cannula 2.0 97.3 I & O 10/18/19 10/18/19 10/19/19 15:00 23:00 07:00 Intake Total 600 ml 400 ml Output Total 950 ml 950 ml 200 ml Balance -950 ml -350 ml 200 ml Physical Exam General: Alert, Oriented X3, Cooperative, No acute distress Heart: Regular rate (SR), Other (distant heart sounds) Lungs: Clear Abdomen: Normal bowel sounds, No tenderness Extremities: No cyanosis, Other (2+ bilateral LE pitting edema) Skin: No breakdown Labs Labs: Laboratory Tests Test 10/18/19 11:38 10/18/19 16:29 10/18/19 20:59 10/19/19 08:07 Glucose (Fingerstick) 200 mg/dL (70-99) 129 mg/dL (70-99) 318 mg/dL (70-99) 97 mg/dL (70-99) Review of Systems Review of Systems: denies chest pain Reports SOA but at baseline Assessment and Plan Assessmemt and Plan Problems Medical Problems: (1) Dyspnea Status: Acute Uwmia-we-jjnkyps hypercarbic respiratory failure, Acute on chronic diastolic CHF, right sided, cor pulmonale, Bilateral pleural effusion, s/p thoracentesis w/ transudative fluid DM2 Morbid obesity CAROLE Plan: -Cardiology & pulmonology following -Cardiac monitoring -Continue Bipap -IV Lasix -Pt headed to RAD for chest xray -S/p thoracentesis with transudative fluid collected -[facility] -Continue Home meds -DVT prophylaxis -Full code -[facility] labs -PT/OT -Probable Discharged home with [employer] machine Comment Review of Relevant I have reviewed the following items niko (where applicable) has been applied. ELODIA GABRIEL III DO Oct 19, 2019 10:18
[2019-10-19 11:00] VITALS: BP 122/63
--- NOTE | 2019-10-19 11:56 | RAD ---
CHEST PA LATERAL History: Shortness of breath Comparison: 10/16/2019 two-view chest x-rays in. Findings: Frontal and lateral views of the chest were obtained. The cardiomediastinal silhouette is normal. Mildly congested. Small bilateral pleural effusions are present greater on the right with adjacent basilar atelectasis/consolidation.. Bony structures are unremarkable. Surgical clips are present at the upper abdomen. 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 IMPRESSION: No change in pulmonary aeration. Minimal decrease in pulmonary vascular congestion noted. Electronically signed by: Jorge Lynch MD (10/19/2019 11:53 AM) [facility]
--- NOTE | 2019-10-19 13:12 | NUR ---
SS following up with discharge planning. Discharge orders received for home healthcare. Nurse navigator met with pt to discuss home healthcare and home healthcare options. Pt agreeable to [facility], ; fax [phone]. Discharge orders and referral phoned and faxed to [facility]. Pt's RN notified. [facility] contacted and per RN came and replaced [employer] machine.
[2019-10-19 13:55] LABS: BASE EXCESS ABG 11 mmol/L (-3-3); HCO3 ABG 39 mmol/L (21-28); PO2 ABG 87 mmHg (65-108); SAT O2 ABG 96 % (92-99)
[2019-10-19 13:57] LABS: FIO2 ABG 28; PCO2 ABG 66 mmHg (35-46)
[2019-10-19] MEDS ORDERED: FURO40TA4 PO (15:18)
--- NOTE | 2019-10-19 16:05 | NUR ---
Discharge Note: CHRISTAL TRUJILLO [facility] Discharge instructions and discharge home medications reviewed with Patient and a copy given. All questions have been answered and understanding verbalized. The following instructions and handouts were given: heart failure info, respiratory failure info, pleural effusion info, prescription for lasix, discharge instructions. Discontinued lines and drains: Peripheral IV intact. Patient discharged to Home or Self Care with home health services with spouse via Wheelchair at 1605. Dr. Pink & Dr. Cabrales notified of patient being discharged.
--- NOTE | 2019-10-19 16:10 | PDOC ---
PULMONARY PROGRESS NOTES Subjective PT FEELS BETTER LESS SOA Vitals Vital Signs Date Time Temp Pulse Resp B/P (MAP) Pulse Ox O2 Delivery O2 Flow Rate FiO2 10/19/19 11:56 95 Nasal Cannula 2.0 10/19/19 11:00 98.1 76 22 122/63 (82) 98.1 ROS: No Nausea General: Alert Lungs: Clear Cardiovascular: S1, S2 Abdomen: Soft, Non-tender Neuro Exam: Alert Extremities: No Edema Skin: Warm Labs Laboratory Tests Test 10/17/19 16:23 10/17/19 20:26 10/18/19 07:26 10/18/19 11:38 Glucose (Fingerstick) 227 mg/dL (70-99) 198 mg/dL (70-99) 214 mg/dL (70-99) 200 mg/dL (70-99) Test 10/18/19 16:29 10/18/19 20:59 10/19/19 08:07 10/19/19 11:27 Glucose (Fingerstick) 129 mg/dL (70-99) 318 mg/dL (70-99) 97 mg/dL (70-99) 218 mg/dL (70-99) Test 10/19/19 13:55 O2 Saturation 96 % (92-99) Arterial Blood pH 7.38 (7.35-7.45) Arterial Blood pCO2 at Patient Temp 66 mmHg (35-46) Arterial Blood pO2 at Patient Temp 87 mmHg (65-108) Arterial Blood HCO3 39 mmol/L (21-28) Arterial Blood Base Excess 11 mmol/L (-3-3) FiO2 28 Laboratory Tests Test 10/18/19 16:29 10/18/19 20:59 10/19/19 08:07 10/19/19 11:27 Glucose (Fingerstick) 129 mg/dL (70-99) 318 mg/dL (70-99) 97 mg/dL (70-99) 218 mg/dL (70-99) Test 10/19/19 13:55 O2 Saturation 96 % (92-99) Arterial Blood pH 7.38 (7.35-7.45) Arterial Blood pCO2 at Patient Temp 66 mmHg (35-46) Arterial Blood pO2 at Patient Temp 87 mmHg (65-108) Arterial Blood HCO3 39 mmol/L (21-28) Arterial Blood Base Excess 11 mmol/L (-3-3) FiO2 28 Medications Active Scripts Medications Dose Route/Sig Max Daily Dose Days Date Category Dose Instructions Doxazosin Mesylate 2 Mg Tablet 1 Tab PO QHS 09/22/19 Reported Meloxicam 7.5 Mg Tablet 1 Tab PO DAILY 01/14/17 Reported Omeprazole 40 Mg Capsule.dr 1 Cap PO DAILY 01/14/17 Reported Spiriva (Tiotropium [place]) 18 Mcg Cap.w.dev 1 Cap IH DAILY 01/14/17 Reported Flovent 100MCG Diskus (Fluticasone Propionate) 100 Mcg Disk.w.dev 1 Puff IH BID 01/14/17 Reported Novolog Flexpen (Insulin Aspart) 100 Unit/1 Ml Insuln.pen 1 Unit SQ 01/14/17 Reported sliding scale for bg >200 Humulin 70/30 Kwikpen (Hum Insulin Nph/Reg Insulin Hm) 100 Unit/1 Ml Insuln.pen 100 Unit SQ 01/14/17 Reported 35 units in the am, 33 units at hs Toprol Xl (Metoprolol Succinate) 50 Mg Tab.er.24h 1 Tab PO DAILY 01/14/17 Reported Lyrica (Pregabalin) 150 Mg Capsule 1 Cap PO BID 01/14/17 Reported Sulfasalazine 500 Mg Tablet 1,000 Mg PO BID 01/14/17 Reported Xifaxan (Rifaximin) 550 Mg Tablet 1 Tab PO BID 01/14/17 Reported Impression . IMPRESSION: 1. Njkgp-si-gaiciue hypercapnic respiratory failure, multifactorial. 2. Uzeaf-we-joverra cor pulmonale. 3. Abnormal x-ray. 4. Status post previous thoracentesis, fluid analysis compatible with transudative effusion. 5. Morbid obesity. 6. History of sarcoid. 7. Obstructive sleep apnea. 8. History of cirrhosis. Plan . REPEAT ABG MUCH BETTER SPOKE WITH [facility] RT MACHINE IS WORKING FINE WILL DC HOME CXR IS BETTER WILL FOLLOW UP OUT PT MARIA INES DUMONT MD Oct 19, 2019 16:10
== END 2019-10-19 16:05 | disposition home health service (06) | DRG 291 ==
LOC: ER 19:04 → ED HOLD 22:21 → 2 SOUTH 23:21
PROVIDERS: ADMIT Internal Medicine; ATTEND Internal Medicine
PROC: 5A09357 Assistance with Respiratory Ventilation, Less than 24 Consecutive Hours, Continuous Positive Airway Pressure (ICD-10-PCS; principal; 2019-10-16)
PROC: 5A09357 Assistance with Respiratory Ventilation, Less than 24 Consecutive Hours, Continuous Positive Airway Pressure (ICD-10-PCS; 2019-10-17)
PROC: 5A09357 Assistance with Respiratory Ventilation, Less than 24 Consecutive Hours, Continuous Positive Airway Pressure (ICD-10-PCS; 2019-10-18)
PROC: 5A09357 Assistance with Respiratory Ventilation, Less than 24 Consecutive Hours, Continuous Positive Airway Pressure (ICD-10-PCS; 2019-10-19)
DX: I11.0 Hypertensive heart disease with heart failure (principal); J96.22 Acute and chronic respiratory failure with hypercapnia; Z68.41 Body mass index [BMI] 40.0-44.9, adult; I50.43 Acute on chronic combined systolic (congestive) and diastolic (congestive) heart failure; E11.9 Type 2 diabetes mellitus without complications; K74.60 Unspecified cirrhosis of liver; M19.90 Unspecified osteoarthritis, unspecified site; M06.9 Rheumatoid arthritis, unspecified; I16.0 Hypertensive urgency; I27.29 Other secondary pulmonary hypertension; I27.81 Cor pulmonale (chronic); E66.01 Morbid (severe) obesity due to excess calories; G47.33 Obstructive sleep apnea (adult) (pediatric); J98.4 Other disorders of lung; Z88.7 Allergy status to serum and vaccine; Z88.8 Allergy status to other drugs, medicaments and biological substances; Z82.3 Family history of stroke; Z82.49 Family history of ischemic heart disease and other diseases of the circulatory system
CPT/HCPCS: 36415; 36600; 71046; 80048; 80053; 81001; 82140; 82805; 82962; 83735; 83880; 84484; 85025; 87086; 94640; 94660; 94760; J1815; J1940; J7620; J7626; 97116; G0378

== ENCOUNTER 2020-11-08 07:09 | Emergency (ER) | payer MEDICARE, MEDICAID ==
[~2020-11-08] VITALS: Ht 123.2 cm; Wt 90.9 kg
[~2020-11-08 07:09] MED LIST changes: +DOXY100T PO; -FLUT100D IH; +FLUT100D2 IH; +FURO40TA4 PO; +PRED20TA PO
[2020-11-08 07:53] LABS: BASO % 1 % (0-3); EOS % 1 % (0-3); HEMATOCRIT 32.5 % (36.0-47.0); HEMOGLOBIN 10.2 g/dL (12.0-15.5); LYMPH # 0.7 x10^3/uL (1.0-4.8); LYMPH % 16 % (24-48); MEAN CORPUSCULAR HEMOGLOBIN 25 pg (25-35); MEAN CORPUSCULAR HGB CONC 31 g/dL (31-37); MEAN CORPUSCULAR VOLUME 81 fL (79-100); MONO # 0.4 x10^3/uL (0.0-1.1); MONO % 9 % (0-9); NEUT # 3.1 x10^3/uL (1.8-7.7); NEUT % 74 % (31-73); PLATELET COUNT 106 x10^3/uL (140-400); RED CELL DISTRIBUTION WIDTH 15.6 % (11.5-14.5); WHITE BLOOD COUNT 4.2 x10^3/uL (4.0-11.0)
[2020-11-08 07:54] LABS: BILIRUBIN,URINE NEGATIVE (NEG); CLARITY,URINE CLEAR; COLOR,URINE YELLOW; NITRITE,URINE NEGATIVE (NEG); PH,URINE 7.5 (<5.0-8.0); PROTEIN,URINE NEGATIVE (NEG-TRACE); UROBILINOGEN,URINE 0.2 mg/dL (0.2 mg/dL)
[2020-11-08 07:58] LABS: BACTERIA,URINE MODERATE /HPF (0-FEW); RBC,URINE 0 /HPF (0-2)
--- NOTE | 2020-11-08 08:12 | RAD ---
EXAM: CHEST 1 VIEW History: Shortness of breath COMPARISON: 10/24/2020 TECHNIQUE: Single portable radiograph of the chest FINDINGS: Moderate cardiomegaly. Mild prominent bilateral interstitial lung markings likely congesti ve changes. Bibasilar lung airspace opacities likely atelectasis or infiltrates. Probable small right pleural effusion. IMPRESSION: Findings consistent with congestive changes with bibasilar lung airspace opacities likel y atelectasis or infiltrates.. Electronically signed by: Eulalio Cornell MD (11/08/2020 8:10 AM) [id number]
--- NOTE | 2020-11-08 08:13 | PHYS DOC ---
Past Medical History Past Medical History: Arthritis, CHF, COPD, Diabetes-Type II, Hypertension, Other Additional Past Medical Histor: Sarcoidosis, Cirrohosis, Rheumatoid, Sleep Apnea Past Surgical History: , Other Additional Past Surgical Histo: left ear, neck biopsy Smoking Status: Never Smoker Alcohol Use: None General Adult EDM: Chief Complaint: left flank pain HPI: HPI: Patient is a 65 year old female who presented to ER for evaluation of trouble breathing, heart palpitation, left flank pain since yesterday. Patient has history of COPD, she is on 2 L oxygen at home all the time, has shortness of air most of the time. Patient had Covid vaccine first dose 2 weeks ago. Patient denies any cough or fever. Patient denies any chest pain. Patient complains of no generalized frequency or urgency, no abdominal pain, no nausea vomiting. Review of Systems: Review of Systems: Constitutional: Denies fever or chills. [] Eyes: Denies change in visual acuity. [] HENT: Denies nasal congestion or sore throat. [] Respiratory: Denies cough, positive for shortness of air Cardiovascular: Denies chest pain or edema. Positive for heart palpitation GI: Denies abdominal pain, nausea, vomiting, bloody stools or diarrhea. [] : Denies dysuria. [] Musculoskeletal: Denies back pain or joint pain. Positive for left flank pain Integument: Denies rash. [] Neurologic: Denies headache, focal weakness or sensory changes. [] Endocrine: Denies polyuria or polydipsia. [] Lymphatic: Denies swollen glands. [] Psychiatric: Denies depression or anxiety. [] Heart Score: C/O Chest Pain: N/A Risk Factors: Risk Factors: DM, Current or recent (<one month) smoker, HTN, HLP, family history of CAD, obesity. Risk Scores: Score 0 - 3: 2.5% MACE over next 6 weeks - Discharge Home Score 4 - 6: 20.3% MACE over next 6 weeks - Admit for Clinical Observation Score 7 - 10: 72.7% MACE over next 6 weeks - Early Invasive Strategies Allergies: Allergies: Allergies Coded Allergies Type Severity Reaction Last Updated Verified Tetanus Vaccines and Toxoid Allergy Intermediate 01/14/17 Yes clotrimazole Allergy Intermediate 01/14/17 Yes lisinopril Allergy Intermediate 01/14/17 Yes losartan Allergy Intermediate 01/14/17 Yes Physical Exam: PE: Constitutional: Well developed, well nourished, no acute distress, non-toxic appearance. [] HENT: Normocephalic, atraumatic, bilateral external ears normal, oropharynx moist, no oral exudates, nose normal. [] Eyes: PERRLA, EOMI, conjunctiva normal, no discharge. [] Neck: Normal range of motion, no tenderness, supple, no stridor. [] Cardiovascular:Heart rate regular rhythm, no murmur [] Lungs & Thorax: Bilateral breath sounds clear to auscultation [] Abdomen: Bowel sounds normal, soft, no tenderness, no masses, no pulsatile masses. [] Skin: Warm, dry, no erythema, no rash. [] Back: No tenderness, no CVA tenderness. [] Extremities: No tenderness, no cyanosis, no clubbing, ROM intact, bilateral yaima ing edema lower extremity 2+ Neurologic: Alert and oriented X 3, normal motor function, normal sensory function, no focal deficits noted. [] Psychologic: Affect normal, judgement normal, mood normal. [] Current Patient Data: Labs: Laboratory Tests Test 11/08/20 07:20 11/08/20 07:31 Urine Collection Type Void Urine Color Yellow Urine Clarity Clear Urine pH 7.5 (<5.0-8.0) Urine Specific [place] 1.010 (1.000-1.030) Urine Protein Negative mg/dL (NEG-TRACE) Urine Glucose (UA) Negative mg/dL (NEG) Urine Ketones (Stick) Negative mg/dL (NEG) Urine Blood Negative (NEG) Urine Nitrite Negative (NEG) Urine Bilirubin Negative (NEG) Urine Urobilinogen Dipstick 0.2 mg/dL (0.2 mg/dL) Urine Leukocyte Esterase Moderate (NEG) Urine RBC 0 /HPF (0-2) Urine WBC 11-20 /HPF (0-4) Urine Squamous Epithelial Cells Mod /LPF Urine Bacteria Moderate /HPF (0-FEW) White Blood Count 4.2 x10^3/uL (4.0-11.0) Red Blood Count 4.00 x10^6/uL (3.50-5.40) Hemoglobin 10.2 g/dL (12.0-15.5) L Hematocrit 32.5 % (36.0-47.0) L Mean Corpuscular Volume 81 fL (79-100) Mean Corpuscular Hemoglobin 25 pg (25-35) Mean Corpuscular Hemoglobin Concent 31 g/dL (31-37) Red Cell Distribution Width 15.6 % (11.5-14.5) H Platelet Count 106 x10^3/uL (140-400) L Neutrophils (%) (Auto) 74 % (31-73) H Lymphocytes (%) (Auto) 16 % (24-48) L Monocytes (%) (Auto) 9 % (0-9) Eosinophils (%) (Auto) 1 % (0-3) Basophils (%) (Auto) 1 % (0-3) Neutrophils # (Auto) 3.1 x10^3/uL (1.8-7.7) Lymphocytes # (Auto) 0.7 x10^3/uL (1.0-4.8) L Monocytes # (Auto) 0.4 x10^3/uL (0.0-1.1) Eosinophils # (Auto) 0.0 x10^3/uL (0.0-0.7) Basophils # (Auto) 0.0 x10^3/uL (0.0-0.2) Laboratory Tests 11/08/20 07:31 Vital Signs: Vital Signs Date Time Temp Pulse Resp B/P (MAP) Pulse Ox O2 Delivery O2 Flow Rate FiO2 11/08/20 07:19 99.5 108 28 175/81 (112) 99 Nasal Cannula 2.0 99.5 EKG: EKG: EKG was done at 728, heart rate 107 bpm, sinus tachycardia, no ST segment elevation, normal axis. Radiology/Procedures: Radiology/Procedures: [][facility] [address] [place] [address] IMAGING REPORT Signed PATIENT: CHRISTAL TRUJILLO ACCOUNT: [id number] : 1955 LOCATION: ER AGE: 65 SEX: F EXAM STATUS: REG ER ORD. PHYSICIAN: CATRACHITA ENAMORADO DO REASON: shortness of air, left side chest pain PROCEDURE: PORTABLE CHEST 1V EXAM: CHEST 1 VIEW History: Shortness of breath COMPARISON: 10/24/2020 TECHNIQUE: Single portable radiograph of the chest FINDINGS: Moderate cardiomegaly. Mild prominent bilateral interstitial lung markings likely congestive changes. Bibasilar lung airspace opacities likely ate lectasis or infiltrates. Probable small right pleural effusion. IMPRESSION: Findings consistent with congestive changes with bibasilar lung airspace opacities likely atelectasis or infiltrates.. Electronically signed by: Eulalio Cornell MD (11/08/2020 8:10 AM) [id number] DICTATED and SIGNED BY: EULALIO CORNELL MD DATE: 11/08/20 [id number] Course & Med Decision Making: Course & Med Decision Making Pertinent Labs and Imaging studies reviewed. (See chart for details) Patient is a 65-year-old female who who has COPD, on oxygen at home, presented with left flank pain, patient felt her UTI, patient was in no acute distress, patient will be discharged home with antibiotic. Patient will need to follow-up with her family physician this week for reevaluation. Dragon Disclaimer: Dragon Disclaimer: This electronic medical record was generated, in whole or in part, using a voice recognition dictation system. Departure Departure Impression: Primary Impression: UTI (urinary tract infection) Additional Impression: Chronic obstruct airways disease Disposition: 01 DC HOME SELF CARE/HOMELESS Condition: IMPROVED Referrals: ANGEL CASTANEDA MD (PCP) Please follow up with your doctor this week. Patient Instructions: Chronic Obstructive Pulmonary Disease, Urinary Tract Infection Additional Instructions: Thank you for visiting our Emergency Department. We appreciate you trusting us with your care. If any additional problems come up don't hesitate to return to visit us. Please follow up with your primary care provider so they can plan additional care if needed and know about the problem that you had. If symptoms worsen come back to the Emergency Department. Any concerning symptoms that start such as chest pain, shortness of air, weakness or numbness on one side of the body, running high fevers or any other concerning symptoms return to the ER. Scripts Levofloxacin (LEVOFLOXACIN) 500 Mg Tablet 1 TAB PO DAILY, #7 TAB Prov: CATRACHITA ENAMORADO DO 11/08/20 CATRACHITA ENAMORADO DO Nov 08, 2020 08:13
[2020-11-08] MEDS ORDERED: cefTRIAXone IV Push 1 GM VIAL. IVP ONE (08:15)
[2020-11-08 08:36] LABS: CALCIUM 8.3 mg/dL (8.5-10.1); CREATININE 0.6 mg/dL (0.6-1.0); POTASSIUM 3.8 mmol/L (3.5-5.1)
[2020-11-08 08:49] LABS: ALBUMIN/GLOBULIN RATIO 0.8 (1.0-1.7); MAGNESIUM 1.8 mg/dL (1.8-2.4); TOTAL BILIRUBIN 0.5 mg/dL (0.2-1.0)
[2020-11-08 09:23] VITALS: BP 171/77
[2020-11-08] MEDS ORDERED: LEVO500T8 PO (09:54)
--- NOTE | 2020-11-08 12:29 | EKG ---
[facility] [address] [place] [address] Test Date: 2020-11-08 Test Time: 08:08:22 Pat Name: CHRISTAL TRUJILLO Department: Room: Gender: F Doorkeeper: : 1955 Requested By: CATRACHITA ENAMORADO Order Number: [id number] Reading MD: Measurements Intervals [place] Rate: 107 P: 0 NV: 138 QRS: 14 QRSD: 82 T: 48 QT: 318 QTc: 430 Interpretive Statements SINUS TACHYCARDIA OTHERWISE NORMAL ECG RI6.02 Compared to ECG 11/08/2020 07:28:02 No significant changes
--- NOTE | 2020-11-08 12:29 | EKG ---
[facility] [address] [place] [address] Test Date: 2020-11-08 Test Time: 07:28:02 Pat Name: CHRISTAL TRUJILLO Department: Room: Gender: F C[employer] Me[employer] Supervisor: : 1955 Requested By: CATRACHITA ENAMORADO Order Number: [id number] Reading MD: Measurements Intervals [place] Rate: 107 P: 0 CA: 130 QRS: 18 QRSD: 82 T: 60 QT: 316 QTc: 427 Interpretive Statements SINUS TACHYCARDIA OTHERWISE NORMAL ECG RI6.02 No previous ECG available for comparison
== END 2020-11-08 10:22 | disposition home or self-care (01) ==
LOC: ER 07:09
DX: N39.0 Urinary tract infection, site not specified (principal); R00.2 Palpitations; R10.9 Unspecified abdominal pain; M19.90 Unspecified osteoarthritis, unspecified site; I11.0 Hypertensive heart disease with heart failure; I50.9 Heart failure, unspecified; J44.9 Chronic obstructive pulmonary disease, unspecified; E11.9 Type 2 diabetes mellitus without complications; Z98.890 Other specified postprocedural states; Z88.8 Allergy status to other drugs, medicaments and biological substances; Z88.7 Allergy status to serum and vaccine
CPT/HCPCS: 36415; 71045; 80053; 81001; 83605; 83690; 83735; 83880; 84484; 85025; 87040; 87086; 93005; 96374; 99285; J0696